=== PATIENT | male | born 1955 | race Caucasian/White ===

== ENCOUNTER → 2017-04-09 06:55 | Outpatient (CLI) | payer OTHER, SELFPAY ==
--- NOTE | 2017-04-09 10:08 | NEURO_ITS ---
NCS and/or EMG Patient Report Ordering Doctor: Danny Connelly DATE OF SERVICE: 04/09/17 This is a right upper extremity nerve conduction study performed on this 61-year -old male with a history of numbness in his fingers worse at night. A wrist brace has been helpful. Symptoms have been present for approximately 2 years she is healthy otherwise. Right upper extremity sensory and motor nerve conduction study demonstrates prolongation of the median motor and sensory distal latencies with preservation of amplitudes and conduction velocities. The ulnar motor and sensory and radial sensory responses are normal. The median F-wave is prolonged, the ulnar F wave is normal. 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
== END ==
PROVIDERS: Family Provider Family Medicine; PCP Family Medicine; Visit Provider Family Medicine
DX: G56.01 Carpal tunnel syndrome, right upper limb (principal)
CPT/HCPCS: 95909

== ENCOUNTER → 2019-06-02 10:00 | Outpatient (CLI) | payer OTHER, SELFPAY ==
[2014-10-15 14:43] VITALS: BMI 27.8
== END ==
PROVIDERS: PCP Family Medicine; Referring Provider Otolaryngology; Visit Provider Otolaryngology
DX: J32.9 Chronic sinusitis, unspecified (principal)
CPT/HCPCS: 87070; 87205

== ENCOUNTER → 2019-06-05 08:25 | Outpatient (CLI) | payer OTHER, SELFPAY ==
--- NOTE | 2019-06-05 08:39 | CT_ITS ---
STUDY: CT MAXILLOFACIAL SINUSES REASON FOR EXAM: Male, 63 years old. PT STATED CHRONIC SINUSITIS X 4 MONTHS, NIA COLT RADIATION DOSAGE (If Supplied By Facility): CTDIvol = ( 33.06 ) mGy, DLP = ( 899.96 ) mGycm TECHNIQUE: The patient was scanned in a multi detector CT scanner. High resolution axial imaging was performed without the administration of intravenous contrast material. Sagittal and coronal images were reconstructed. Individualized dose optimization techniques were used for this CT. COMPARISON: None. FINDINGS: FRONTAL SINUSES: There is minimal mucosal thickening of the right frontal sinus. The left frontal sinus is clear. ETHMOIDAL SINUSES: There is mucosal thickening of the right anterior ethmoidal cells. The left ethmoidal cells are clear. MAXILLARY SINUSES: There is complete opacification of the right maxillary sinus with obstruction of the outflow tract. SPHENOIDAL SINUSES: Normal aeration, without mucosal inflammatory disease. There is obstruction of the right maxillary infundibuli. Normal bilateral middle turbinates. Normal bilateral inferior turbinates. There is deviation of the nasal septum to the left There is patency of the bilateral nasal airways. The visualized osseous structures are normal. The visualized bilateral orbital contents are normal. CT/Sinus/Facial Bone IMPRESSION: Right paranasal sinus disease. Electronically Signed: Deidra Quevedo MD at 9:46 EDT Tel , Service support ,
== END ==
PROVIDERS: PCP Family Medicine; Referring Provider Otolaryngology; Visit Provider Otolaryngology
DX: J32.9 Chronic sinusitis, unspecified (principal)
CPT/HCPCS: 70486

== ENCOUNTER 2019-11-15 06:55 | Emergency (ER) | payer OTHER, SELFPAY ==
[2019-11-15 06:55] VITALS: BP 184/119; PULSE 83; RESP 16; TEMP 36.5; O2SAT 95; BMI 28.8
--- NOTE | 2019-11-15 07:15 | ED.VISSUMM ---
- ER Visit Summary Date of Service: 11/15/19 Chief Complaint: Abdominal pain History of Present Illness: The patient is a 64 M who presents with abdominal pain that began this morning. Patient states the pain woke him up approximately 3-1/2 hours prior to arrival. Patient states the pain is over the left side of his abdomen under his left ribs. Patient admits to some nausea and vomiting. Patient denies any hematemesis or coffee-ground emesis. Patient denies any diarrhea, melena, or hematochezia. Patient describes his pain is aching. Patient denies any radiation of the pain. Patient denies any dysuria or hematuria. Patient states nothing makes his pain better or worse. Physical Examination: Vital signs are stable except for an elevated blood pressure of 184/119. Patient is afebrile. Patient is in no acute distress. Oral mucosa is pink and moist. Neck is supple. Trachea is midline. There is no JVD. Heart was regular rate and rhythm. Lungs are clear and equal bilaterally. Abdomen is soft. Bowel sounds are hypoactive. There is some left upper quadrant tenderness. There is some mild tenderness over the left costovertebral angle. There is no rebound or guarding noted. Extremities are intact. There is no calf tenderness or edema. Cranial nerves II through XII are intact. There are no focal motor or sensory deficits. Test Results: CBC was within normal limits. Comprehensive metabolic profile showed a slightly elevated creatinine of 1.46 and a BUN of 22. Urinalysis does not show any evidence of urinary tract infection. CT scan of the abdomen and pelvis with IV contrast was obtained. There is a 4 mm left distal ureteral calculus with obstruction. There are also 3 nonobstructing calculi in the left kidney. These were interpreted by the radiologist and reviewed by myself. Emergency Department Course and Treatment: Patient was given IV fluids, morphine, and Zofran here. Patient had minimal relief of his pain with this. Patient was given a dose of Dilaudid here. Patient was feeling better on reevaluation. Patient was advised of his findings. Patient was given a prescription for Percocet. Patient was given a referral for urology. Patient was instructed to follow-up with his primary care physician in 5 to 7 days. Patient was also instructed to follow-up with urology. Patient understood and was agreeable with the plan. All questions were answered. Disposition: Discharge home Impression: 1. Left ureteral calculus This note was generated with [employer] dictation software. It may contain incorrect words, spelling, and punctuation that were not noted in review of the chart prior to signing ED Disposition - Plan for ED Patient: Disposition: Home or Assisted Living Diagnosis: Calculus of distal left ureter Instructions: ED Renal Stone w Colic Prescriptions: Oxycodone HCl/Acetaminophen [Percocet 5/325] 1 tab PO Q6H PRN PRN 3 Days #12 tab PRN Reason: Pain Prescription Printed Referrals: Danny Connelly MD [Primary Care Provider] - 5-7 Days Ozzie Gibbs MD [STAFF PHYSICIAN] - 3-5 Days
[2019-11-15 07:24] LABS: Absolute Lymphocyte Count 0.97 X10^3/uL (0.83-4.51); Absolute Neutrophil Count 6.1 X10^3/uL (2.0-7.7); Basophil# 0.05 X10^3/uL; Basophil% 0.6 % (0-1); Eosinophil# 0.15 X10^3/uL; Eosinophils% 1.9 % (0-5); Hematocrit 44.7 % (40-54); Hemoglobin 14.7 g/dL (13.0-16.5); Lymphocyte # 0.97 X10^3/ul (4.0); Lymphocyte % 12.2 % (19-41); Mean Corp Hgb Conc 32.9 g/dL (32-36); Mean Corpuscular Hgb 29.4 pg (27.0-32.0); Mean Corpuscular Volume 89.4 fL (80-94); Mean Platelet Vol. 9.7 fl (6.2-12.0); Monocyte# 0.62 X10^3/uL; Monocyte% 7.8 % (0-10); NRBC Flagged by Analyzer 0 % (0-5); Platelet Count 287 K/mm3 (150-450); RBC Distribution Width CV 13.1 % (11.6-14.6); RBC Distribution Width SD 42.8 fl (35.1-43.9); White Blood Count 7.9 K/mm3 (4.4-11.0)
[2019-11-15] MEDS: Ondansetron 4 MG/2 ML Vial IV (07:27)
[2019-11-15] MEDS: Morphine 4 MG/ML Syringe IV (07:28)
[2019-11-15] MEDS: 0.9% Normal Saline 1,000 ML 1000 ML IV ×2 (07:29→08:48)
--- NOTE | 2019-11-15 07:29 | CT_ITS ---
STUDY: CT ABDOMEN AND PELVIS WITHOUT CONTRAST REASON FOR EXAM: Male, 64 years old. Left sided abdomen pain today, vomiting. RADIATION DOSAGE (If Supplied By Facility): CTDIvol = ( 19.74 ) mGy, DLP = ( 1290.36 ) mGycm TECHNIQUE: Transaxial images were obtained from the dome of the diaphragm to the symphysis pubis without oral contrast, and without intravenous contrast. Sagittal and coronal images were reconstructed. Individualized dose optimization techniques were used for this CT. COMPARISON: None. FINDINGS: Small cyst in the left lung base. The visualized portions of the heart are within normal limits. Small nonenhancing hypodense cyst in the right hepatic lobe (series 2, image 22). Normal gallbladder and extrahepatic biliary system. Normal spleen. Normal pancreas. Normal bilateral adrenal glands. Right kidney: 2 nonenhancing hypodense cysts. The dominant cyst measures 4.6 x 4.1 cm. No stones or hydronephrosis. Left kidney: 3 nonobstructing calculi. They are 2 to 3 mm in size. Moderate left hydronephrosis secondary to 4 mm partially obstructing calculus in the left distal ureter. Mild perirenal space edema. Normal visualized stomach. Normal small intestine. Normal colon. The appendix is visualized and appears normal. Minimal calcified plaques in the infrarenal abdominal aorta and moderate calcifications in the iliac arteries. Normal inferior vena cava. Normal retroperitoneum. Normal urinary bladder. Prominent central lobe is at least BPH. Normal abdominal wall. Mild anterior wedging of the upper T12 vertebral body is presumably from remote injury. Pronounced L5-S1 disc space height narrowing with grade 1 anterolisthesis of L5 on S1. Bilateral L5 pars defects and severe stenosis of the bilateral intervertebral neural foramina. CT/Abdomen/Pelvis W IV Cont ONLY IMPRESSION: 1. Moderate left hydronephrosis secondary to 4 mm partially obstructing calculus in the left distal ureter. 2. Approximately 3 nonobstructing calculi in the left kidney ranging from 2 to 3 mm in size. 3. 4.6 x 4.1 cm nonenhancing right renal cyst and a much smaller round cyst in the right upper renal pole. No stones in the right kidney. 4. Prominent central lobe of the prostate gland is at least BPH. 5. Bilateral L5 pars defects with grade 1 anterolisthesis of L5 on S1, pronounced L5-S1 disc space height narrowing and severe stenosis of the bilateral intervertebral neural foramina. Electronically Signed: Yuri Giles MD at 8:27 EDT , Service support ,
[2019-11-15 07:41] LABS: ALB/GLOB Ratio 1.1 RATIO (0.9-2.4); AST(SGOT) 17 U/L (15-37); Alanine Aminotransfer ALT/SGPT 25 U/L (16-61); Albumin, Serum 3.9 g/dL (3.2-5.0); Alkaline Phosphatase 79 U/L (45-117); Anion Gap 4 (5-15); BUN 22 mg/dL (7-18); BUN/Creat Ratio 15.1 RATIO (10-20); Calcium,Total 8.9 mg/dL (8.5-10.1); Chloride 110 mmol/L (98-107); Creatinine, Serum 1.46 mg/dL (0.70-1.30); EST Glomerular Filtration Rate 51 mL/min (>60); Est Glom Filt Rate - Afr Amer 62 mL/min (>60); Estimated Creatinine Clearance 62.72 ml/min; Globulin 3.7 g/dL (2.2-4.2); Glucose 110 mg/dL (74-106); Lipase 149 U/L (73-393); Potassium 4.2 mmol/L (3.5-5.1); Protein, Total 7.6 g/dL (6.4-8.2); Sodium Level 139 mmol/L (136-145)
[2019-11-15] MEDS: HYDROmorphone 1 MG/ML Syringe IV (07:55)
[2019-11-15 08:31] LABS: Bacteria 0 SEEN /hpf (None Seen); Mucous, Urine 0 SEEN /hpf (<or=2+); Squamous Epithelial Cells - UA 0 SEEN /hpf (0-5); White Blood Cells 0 SEEN /hpf (0-5)
[2019-11-15 08:33] LABS: Color, Urine Yellow (Yellow); Glucose, Dipstick Normal (Normal); Ketone-Dipstick Negative (Negative); Leukocyte Esterase-Dipstick Negative /ul (Negative); Nitrite-Dipstick Negative (Negative); Occult Blood-Urine 150 /ul (Negative); Protein-Dipstick Negative (Negative); Specific Gravity, Urine 1.015 (1.002-1.030); Urine Bilirubin Dipstick Negative (Negative); Urine Clarity Clear (Clear); Urine Urobilinogen Normal (Normal)
[2019-11-15 08:40] LABS: Red Blood Cells-Urine 5-10 SEEN /hpf (0-5)
[2019-11-15 08:50] VITALS: BP 174/114; PULSE 81; RESP 18; O2SAT 98
[2019-11-15 10:00] VITALS: BP 176/100; PULSE 85; RESP 18; O2SAT 99
== END 2019-11-15 10:43 | disposition home or self-care (01) ==
PROVIDERS: Emergency Provider Emergency Medicine; PCP Family Medicine
DX: N20.1 Calculus of ureter (principal); I25.10 Atherosclerotic heart disease of native coronary artery without angina pectoris; I10 Essential (primary) hypertension; E03.9 Hypothyroidism, unspecified; E78.00 Pure hypercholesterolemia, unspecified; Z79.899 Other long term (current) drug therapy
CPT/HCPCS: 74177; 80053; 81001; 83690; 85025; 96361; 96374; 96375; 99285; J7030; Q9967; A4216; J2405

== ENCOUNTER 2019-11-15 22:49 | Observation (INO) | payer OTHER, SELFPAY ==
[2019-11-15 06:55] VITALS: BMI 28.8
[2019-11-15 22:49] VITALS: BP 200/117; PULSE 87; RESP 26; TEMP 36.2; O2SAT 98; BMI 27.8
--- NOTE | 2019-11-15 23:07 | ED.DCSUM_ITS ---
History of Present Illness Chief Complaint: Flank Pain Informant: Patient Onset: Today Context: Sudden Onset Timing: Continuous Current Severity: Moderate Maximum Severity: Severe Narrative: The patient presents with left flank pain and left lower quadrant pain. The patient was actually seen here early this morning. At that time, he was found to have a 4 mm distal obstructing stone with mild hydronephrosis. His pain was very well controlled until about 8 PM tonight. It then came back. He states that he tried a Percocet with no improvement. He is been nauseated with increasing pain. He denies fevers or chills. He denies any dysuria. 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 Patient does have history of coronary vascular disease with prior bypass. He denies any history of prior kidney stones. Prior similar symptoms: Yes Recent Illness/Hospitalization: No Past Medical History - Allergies and Home Meds Allergies/Adverse Reactions: Allergies No Known Allergies Allergy (Verified 11/15/19 07:04) Prior records reviewed: Yes Past Medical History: - - Hypertension hyperlipidemia Surgical History: coronary bypass surgery Smoking Status: Never smoker Review of Systems General: Denies: Chills, Fever, Sweats Eyes: Denies: Visual changes - bilaterally, Diplopia ENT: Denies: Rhinorrhea, Sore throat Cardiovascular: Denies: Chest pain, Palpitations Respiratory: Denies: Dyspnea, Cough, Dyspnea on exertion Gastrointestinal: Reports: Abdominal pain, Nausea. Denies: Vomiting, Diarrhea, Melena, Hematochezia Genitourinary: Denies: Dysuria, Hematuria, Frequency Musculoskeletal: Denies: Back pain, Extremity Pain Skin: Denies: Rash, Wounds Neurological: Denies: Headache, Weakness, Numbness Physical Exam Vital Signs/Narrative: Vital Signs Temp Pulse Resp BP Pulse Ox 11/15/19 22:49 97.1 F L 87 26 H 200/117 H 98 Inital Vital Signs reviewed: Yes General: Well nourished, Well developed, No Acute Distress Head: Normocephalic, Atraumatic Eyes: Perrl, EOMI ENT: Moist mucous membranes, No rhinorrhea Neck: Supple, Nontender Cardiovascular: Regular rate, Regular rhythm, No murmurs Respiratory: No distress, CTA bilaterally, Chest nontender Abdomen: Soft, Nontender, Nondistended, Normal bowel sounds Back: Nontender, Normal Inspection Extremities: Nontender, No edema Skin: Normal color, No rash Neurological: Alert, Oriented x3, Cranial nerves II-XII grossly intact, Normal Strength, Normal Sensation Psychological: Normal affect, Normal Mood Diagnostic/Tx/Re-eval Clinical Impression(s) from Imaging Studies KUB X-Ray 11/16/19 00:44 IMPRESSION: There are at least 2 punctate stones in the left side of the pelvis one which may represent a stone seen on the CT abdomen and pelvis November 15, 2019 8:02 AM. Right lower quadrant phleboliths. Moderate constipation. Electronically Signed: Delphine Hopkins MD at 1:38 EDT Tel , Service support , Abnormal Lab Results 11/15/19 11/15/19 11/16/19 23:30 23:30 00:13 WBC 12.8 H RBC 5.15 Hgb 15.2 Hct 45.8 MCV 88.9 MCH 29.5 MCHC 33.2 RDW Std Deviation 42.3 RDW Coeff of Olaf 13.1 Plt Count 295 MPV 9.9 Immature Gran % (Auto) 0.400 Neut % (Auto) 87.3 H Lymph % (Auto) 5.4 L [place] % (Auto) 6.4 Eos % (Auto) 0.3 Baso % (Auto) 0.2 Absolute Neuts (auto) 11.2 H Absolute Lymphs (auto) 0.69 L Nucleated RBC % 0 Sodium 138 Potassium 3.8 Chloride 107 Carbon Dioxide 24.0 Anion Gap 7 BUN 15 Creatinine 1.25 Estim Creat Clear Calc 73.26 Est GFR (MDRD) Af Amer 74 Est GFR (MDRD) Non-Af 61 BUN/Creatinine Ratio 12.0 Glucose 122 H Calcium 9.0 Urine Color Yellow Urine Clarity Clear Urine pH 7.0 Ur Specific [place] 1.010 Urine Protein 15 H Urine Glucose (UA) Normal Urine Ketones Negative Urine Occult Blood 50 H Urine Nitrite Negative Urine Bilirubin Negative Urine Urobilinogen Normal Ur Leukocyte Esterase Negative Urine RBC 0-5 SEEN Urine WBC 0 SEEN Ur Squamous Epith Cells 0 SEEN Urine Bacteria 0 SEEN Urine Mucus 0 SEEN - Medical Decision Making The patient presents with recurrent pain. He was diagnosed with a kidney stone earlier this morning. He states that he was doing very well until his pain came back. He is markedly uncomfortable. IV was established. Blood work was repeated. With Dilaudid and Toradol, he is feeling markedly improved. He was able to urinate, but there was no evidence of stone passage. There is no evidence of urinary tract infection. The patient is still mildly uncomfortable. Given his significant recurrence of pain, I do feel that the best plan of care will be for observation for pain control, hydration, and potential urology consultation if he does not pass the stone. Patient is agreeable with this plan plan of care Impression 1. 4 mm left UVJ stone with persistent pain ED Disposition - Plan for ED Patient:
[2019-11-15] MEDS: 0.9% Normal Saline 1,000 ML 250 ML IV (23:40)
[2019-11-15] MEDS: Ondansetron 4 MG/2 ML Vial IV (23:40)
[2019-11-15] MEDS: Ketorolac 30 MG/ML Syringe IV (23:40)
[2019-11-15] MEDS: HYDROmorphone 1 MG/ML Syringe IV (23:40)
[2019-11-15 23:55] LABS: Absolute Lymphocyte Count 0.69 X10^3/uL (0.83-4.51); Absolute Neutrophil Count 11.2 X10^3/uL (2.0-7.7); Basophil# 0.03 X10^3/uL; Basophil% 0.2 % (0-1); Eosinophil# 0.04 X10^3/uL; Eosinophils% 0.3 % (0-5); Hematocrit 45.8 % (40-54); Hemoglobin 15.2 g/dL (13.0-16.5); Lymphocyte # 0.69 X10^3/ul (4.0); Lymphocyte % 5.4 % (19-41); Mean Corp Hgb Conc 33.2 g/dL (32-36); Mean Corpuscular Hgb 29.5 pg (27.0-32.0); Mean Corpuscular Volume 88.9 fL (80-94); Mean Platelet Vol. 9.9 fl (6.2-12.0); Monocyte# 0.82 X10^3/uL; Monocyte% 6.4 % (0-10); NRBC Flagged by Analyzer 0 % (0-5); Neutrophil # 11.16 X10^3/uL (2.7-7.7); Neutrophil % 87.3 % (47-70); Platelet Count 295 K/mm3 (150-450); RBC Distribution Width CV 13.1 % (11.6-14.6); RBC Distribution Width SD 42.3 fl (35.1-43.9); Red Blood Count 5.15 M/mm3 (4.6-6.2); White Blood Count 12.8 K/mm3 (4.4-11.0)
[2019-11-15 23:56] LABS: Anion Gap 7 (5-15); BUN 15 mg/dL (7-18); Chloride 107 mmol/L (98-107); Creatinine, Serum 1.25 mg/dL (0.70-1.30); EST Glomerular Filtration Rate 61 mL/min (>60); Est Glom Filt Rate - Afr Amer 74 mL/min (>60); Estimated Creatinine Clearance 73.26 ml/min; Glucose 122 mg/dL (74-106); Potassium 3.8 mmol/L (3.5-5.1); Sodium Level 138 mmol/L (136-145)
[2019-11-16] VITALS (7 sets, daily range): BP systolic 145–174; BP diastolic 83–108; PULSE 72–87; RESP 16–18; TEMP 36.4–36.9; O2SAT 94–99; BMI 28.8
[2019-11-16 00:18] LABS: Bacteria 0 SEEN /hpf (None Seen); Mucous, Urine 0 SEEN /hpf (<or=2+); Squamous Epithelial Cells - UA 0 SEEN /hpf (0-5); White Blood Cells 0 SEEN /hpf (0-5)
[2019-11-16 00:19] LABS: Color, Urine Yellow (Yellow); Glucose, Dipstick Normal (Normal); Ketone-Dipstick Negative (Negative); Leukocyte Esterase-Dipstick Negative /ul (Negative); Nitrite-Dipstick Negative (Negative); Occult Blood-Urine 50 /ul (Negative); Protein-Dipstick 15 mg/dl (Negative); Urine Bilirubin Dipstick Negative (Negative); Urine Clarity Clear (Clear); Urine Urobilinogen Normal (Normal)
[2019-11-16 00:31] LABS: Red Blood Cells-Urine 0-5 SEEN /hpf (0-5)
--- NOTE | 2019-11-16 00:44 | RAD_ITS ---
STUDY: X-RAY - ABDOMEN/PELVIS REASON FOR EXAM: Male, 64 years old. PT SEEN HERE THIS AM AND DX WITH KIDNEY STONE; RETURNS WITH UNCONTROLLED PAIN. LEFT SIDE PAIN. PAIN IS IN PELVIS NOW ANTERIOR TECHNIQUE: Two AP supine views of the abdomen and pelvis. COMPARISON: November 14 CT abdomen and pelvis at 8:02 AM FINDINGS: The lung bases are out of the [id number]. There is a gassy appearance of the colon there is moderate stool. The liver silhouette appears normal. The renal silhouettes are mostly obscured. There are phleboliths within the pelvis. There are punctate calcifications in the left side of the pelvis. There are diffuse degenerative changes of the visualized lumbar spine. RAD/Abdomen Single View IMPRESSION: There are at least 2 punctate stones in the left side of the pelvis one which may represent a stone seen on the CT abdomen and pelvis November 15, 2019 8:02 AM. Right lower quadrant phleboliths. Moderate constipation. Electronically Signed: Delphine Hopkins MD at 1:38 EDT Tel , Service support ,
--- NOTE | 2019-11-16 02:30 | HP.PCM_ITS ---
History of Present Illness Date of Admission: 11/16/19 Chief Complaint: Flank pain The patient is a 64 year old M with a PMH as below who presents with left-sided flank pain that was found to have a kidney stone yesterday morning. He was started on Percocets in the ER and had resolution of this pain and was therefore discharged home. At around 8 PM this evening he had a recurrence of his pain and it was difficult to control. Repeat x-rays did not show a stone however he is still having increasing pain and nausea. He was given a dose of Flomax in the ER and started on IV fluids. He is nervous about going home as he is afraid about his pain not being controlled and therefore would like to be admitted. Past Medical History Allergies No Known Allergies Allergy (Verified 11/15/19 07:04) Home Medications: Ambulatory Orders Medication Instructions Recorded Atenolol [Tenormin (beta carmelo)] 25 mg PO BID 10/15/14 Isosorbide Mononitrate [Monoket] 20 mg PO DAILY 10/15/14 Levothyroxine [Synthroid] 75 mcg PO DAILY 10/15/14 Sertraline HCl [Zoloft] 25 mg PO DAILY 10/15/14 Simvastatin [Zocor] 20 mg PO QHS 10/15/14 Oxycodone HCl/Acetaminophen 1 tab PO Q6H PRN PRN 3 Days #12 tab 11/15/19 [Percocet 5/325] Surgical History: coronary bypass surgery Smoking Status: Never smoker Alcohol: None Drugs: None - *Family History Maternal History Items: Heart Disease Paternal History Items: Unknown Review of Systems Constitutional: Denies: Chills, Fever, Weight Change HEENT: Denies: Head Aches, Sinus Congestion, Sinus Drainage Cardiovascular: Denies: Chest Pain, Palpitations Respiratory: Denies: Cough, Shortness of breath at rest, Sputum production Gastrointestinal: Reports: - - Flank pain left. Denies: Abdominal Pain, Nausea, Vomiting Genitourinary: Denies: Dysuria Musculoskeletal: Denies: Joint Pain, Joint Tenderness Skin: Denies: Rash, Wounds Neurological: Denies: Numbness, Tingling, Focal weakness Psychiatric: Denies: Anxiety, Depression Hematologic/ Lymphatic: Denies: Easy Bruising, Easy Bleeding VTE Information - Inpt Only VTE Present on Admission: No - Physical Exam Vitals/I&O's: Vital Signs Temp Pulse Resp BP Pulse Ox 97.1 F L 86 16 168/104 H 99 11/15/19 22:49 11/16/19 01:25 11/16/19 01:25 11/16/19 01:25 11/16/19 01:25 Oxygen Delivery Method Room Air Weight: 235 lb Body Mass Index (BMI) 27.8 General: Alert, Oriented x3, Cooperative, No apparent distress HEENT: Atraumatic, PERRLA, EOMI, Normocephalic Oral: Moist Mucosa Neck: Supple, No JVD Lungs: Clear to auscultation, Normal air movement, No rhonchi, No wheeze, No rales Cardiovascular: Regular rate, Regular Rhythm, Normal S1, Normal S2, No murmurs Abdomen: Soft, Non Tender, Non-Distended, No Hepato-splenomegaly Extremities: No edema, Capillary Refill Less than 3 Seconds Skin: No rashes, No breakdown Neurological: Neuro grossly intact, Sensory exam intact to light touch and pain Psych/Mental Status: Normal Affect, Appropriate Laboratory Results 11/15/19 23:30: WBC 12.8 H, RBC 5.15, Hgb 15.2, Hct 45.8, MCV 88.9, MCH 29.5, MCHC 33.2, RDW Std Deviation 42.3, RDW Coeff of Olaf 13.1, Plt Count 295, MPV 9.9, Immature Gran % (Auto) 0.400, Neut % (Auto) 87.3 H, Lymph % (Auto) 5.4 L, [place] % (Auto) 6.4, Eos % (Auto) 0.3, Baso % (Auto) 0.2, Absolute Neuts (auto) 11.2 H, Absolute Lymphs (auto) 0.69 L, Nucleated RBC % 0 11/15/19 23:30: Sodium 138, Potassium 3.8, Chloride 107, Carbon Dioxide 24.0, Anion Gap 7, BUN 15, Creatinine 1.25, Estim Creat Clear Calc 73.26, Est GFR (MDRD) Af Amer 74, Est GFR (MDRD) Non-Af 61, BUN/Creatinine Ratio 12.0, Glucose 122 H, Calcium 9.0 11/16/19 00:13: Urine Color Yellow, Urine Clarity Clear, Urine pH 7.0, Ur Specific [place] 1.010, Urine Protein 15 H, Urine Glucose (UA) Normal, Urine Ketones Negative, Urine Occult Blood 50 H, Urine Nitrite Negative, Urine Bilirubin Negative, Urine Urobilinogen Normal, Ur Leukocyte Esterase Negative, Urine RBC 0-5 SEEN, Urine WBC 0 SEEN, Ur Squamous Epith Cells 0 SEEN, Urine Bacteria 0 SEEN, Urine Mucus 0 SEEN Current Medications Sodium Chloride () 1,000 mls @ 250 mls/hr IV .Q4H JAVAD Last Admin: 11/15/19 23:40 Dose: 250 mls/hr Documented by: Assessment/Plan 1. 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 HTN/HLD -Blood pressures are stable -Continue with atenolol, isosorbide mononitrate -Continue with simvastatin 3. Hypothyroidism -Stable -Continue with Synthroid 4. Depression/anxiety -Stable -Continue with Zoloft DVT: Ambulation OBSV E&M: 45531 Initial observation care L3
[2019-11-16] MEDS: Tamsulosin HCl 0.4 MG Capsule PO ×2 (02:43→17:16)
[2019-11-16] MEDS: 0.9% Normal Saline 1,000 ML 100 ML IV ×3 (03:30→22:04)
[2019-11-16] MEDS: 0.9% Saline Lock 10 ML Syringe IV (03:30)
[2019-11-16] MEDS: Levothyroxine 75 MCG Tablet PO (05:40)
[2019-11-16] MEDS: Sertraline 50 MG Tablet 25 MG PO (08:20)
[2019-11-16] MEDS: Isosorbide Mononitrate 20 MG Tablet PO (08:21)
[2019-11-16] MEDS: Atenolol 25 MG Tablet PO ×2 (08:21→22:03)
[2019-11-16] MEDS: Morphine 2 MG/ML Syringe IV ×2 (10:25→13:28)
[2019-11-16] MEDS: Ketorolac 30 MG/ML Syringe IV (11:13)
[2019-11-16] MEDS: oxyCODONE 5 MG Tablet PO (11:13)
--- NOTE | 2019-11-16 11:40 | PCM.PN.HOSP ---
Subjective: Pt states that he is still having waves of horrible pain that does respond to the pain medication but is the same that he had on admission. Otherwise is ok. Is pushing PO fluids and urinating without difficulty or dysuria. Vitals/I&O's: Vital Signs Temp Pulse Resp BP Pulse Ox 97.6 F L 73 16 145/83 H 95 11/16/19 11:20 11/16/19 11:20 11/16/19 11:20 11/16/19 11:20 11/16/19 11:20 Oxygen Delivery Method Room Air Weight: 110 kg Body Mass Index (BMI) 28.8 Intake and Output for Last 24 Hours 11/14/19 11/15/19 11/16/19 23:59 23:59 23:59 Intake Total 3033.33 / 3033.33 Output Total 2400 / 2400 Balance 633.33 / 633.33 General: Alert, Oriented x3, Cooperative, No apparent distress, Well developed, Well nourished Oral: Moist Mucosa Lungs: Clear to auscultation, Normal air movement, No rhonchi, No wheeze Cardiovascular: Regular rate, Regular Rhythm, Normal S1, Normal S2, No murmurs, No Ectopic Activity, No rub noted, No Gallop Abdomen: Bowel Sounds Present, Soft, Non-Distended Extremities: No clubbing, No cyanosis, No edema, Capillary Refill Less than 3 Seconds Psych/Mental Status: Normal Affect, Appropriate, Alert and oriented to time, place, person, mood and affect Laboratory Results 11/15/19 23:30: WBC 12.8 H, RBC 5.15, Hgb 15.2, Hct 45.8, MCV 88.9, MCH 29.5, MCHC 33.2, RDW Std Deviation 42.3, RDW Coeff of Olaf 13.1, Plt Count 295, MPV 9.9, Immature Gran % (Auto) 0.400, Neut % (Auto) 87.3 H, Lymph % (Auto) 5.4 L, [place] % (Auto) 6.4, Eos % (Auto) 0.3, Baso % (Auto) 0.2, Absolute Neuts (auto) 11.2 H, Absolute Lymphs (auto) 0.69 L, Nucleated RBC % 0 11/15/19 23:30: Sodium 138, Potassium 3.8, Chloride 107, Carbon Dioxide 24.0, Anion Gap 7, BUN 15, Creatinine 1.25, Estim Creat Clear Calc 73.26, Est GFR (MDRD) Af Amer 74, Est GFR (MDRD) Non-Af 61, BUN/Creatinine Ratio 12.0, Glucose 122 H, Calcium 9.0 11/16/19 00:13: Urine Color Yellow, Urine Clarity Clear, Urine pH 7.0, Ur Specific [place] 1.010, Urine Protein 15 H, Urine Glucose (UA) Normal, Urine Ketones Negative, Urine Occult Blood 50 H, Urine Nitrite Negative, Urine Bilirubin Negative, Urine Urobilinogen Normal, Ur Leukocyte Esterase Negative, Urine RBC 0-5 SEEN, Urine WBC 0 SEEN, Ur Squamous Epith Cells 0 SEEN, Urine Bacteria 0 SEEN, Urine Mucus 0 SEEN Current Medications Atenolol (Tenormin (Beta Kristofer)) 25 mg PO BID [facility] Last Admin: 11/16/19 08:21 Dose: 25 mg Documented by: Atorvastatin Calcium (Lipitor) 10 mg PO QHS [facility] Sodium Chloride () 1,000 mls @ 100 mls/hr IV .Q10H [facility] Last Admin: 11/16/19 03:30 Dose: 100 mls/hr Documented by: Isosorbide Mononitrate (Monoket) 20 mg PO DAILY [facility] Last Admin: 11/16/19 08:21 Dose: 20 mg Documented by: Ketorolac Tromethamine (Toradol (Bkc)) 30 mg IV Q6H PRN PRN PRN Reason: Pain Score 1-10/10 Stop: 11/21/19 04:15 Last Admin: 11/16/19 11:13 Dose: 30 mg Documented by: Levothyroxine Sodium (Synthroid) 75 mcg PO DAILY@0600 [facility] Last Admin: 11/16/19 05:40 Dose: 75 mcg Documented by: Morphine Sulfate () 2 mg IV Q3H PRN PRN PRN Reason: Pain Score 6-10/10 Last Admin: 11/16/19 10:25 Dose: 2 mg Documented by: Oxycodone HCl (Oxyir) 5 mg PO Q6H PRN PRN PRN Reason: Pain Score 4-5/10 Last Admin: 11/16/19 11:13 Dose: 5 mg Documented by: Sertraline HCl (Zoloft) 25 mg PO DAILY [facility] Last Admin: 11/16/19 08:20 Dose: 25 mg Documented by: Sodium Chloride () 10 - 40 ml IV UD PRN PRN Reason: SALINE FLUSH Last Admin: 11/16/19 03:30 Dose: 10 ml Documented by: Tamsulosin HCl (Flomax) 0.4 mg PO DAILY@1730 JAVAD STROKE Vital Signs/Narrative: Vital Signs Temp Pulse Resp BP Pulse Ox 11/16/19 11:20 97.6 F L 73 16 145/83 H 95 11/16/19 09:04 97.8 F 82 16 174/100 H 96 Medical Necessity - Tobacco Use Smoking Status: Never smoker Assessment/Plan Acute L Kidney Stone -Pt is still having sig pain in waves on the L -CT from 11/14 showed 3 nonobstructing stones in the L kidney, Mod l hydro 2/2 4 mm distal L ureteral stone -continue IVF -continue Flomax -continue pain medication -Consult Urology since still having pain Hydronephrosis 2/2 Kidney stone -renal function is preserved Microscopic Hematuria -2/2 stones Leukocytosis -suspect reactive -repeat in am -UA with no s/o infection BPH -flomax HTN/HPL -continue atenolol, isosorbide mononitrate -continue statin Hypothyroidism -cont synthroid Anxiety/Depression -continue with Zoloft DVT -early ambulation Code Status -Full Inpatient E&M: 71125 Subs Hosp L2
--- NOTE | 2019-11-16 12:46 | PCM.CONS.U ---
Reason for Consult Date of Consultation: 11/16/19 Reason for Consultation: Left ureter calculi History of Present Illness: The patient is a 64 year old male presented with a small stone distal left ureter was sent home but then rebounds back to the hospital in severe pain he was admitted for pain control he has a small stone in the distal left ureter Past Medical History Allergies No Known Allergies Allergy (Verified 11/15/19 07:04) Home Medications: Ambulatory Orders Medication Instructions Recorded Atenolol [Tenormin (beta carmelo)] 25 mg PO BID 10/15/14 Isosorbide Mononitrate [Monoket] 20 mg PO DAILY 10/15/14 Levothyroxine [Synthroid] 75 mcg PO DAILY 10/15/14 Sertraline HCl [Zoloft] 25 mg PO DAILY 10/15/14 Simvastatin [Zocor] 20 mg PO QHS 10/15/14 Oxycodone HCl/Acetaminophen 1 tab PO Q6H PRN PRN 3 Days #12 tab 11/15/19 [Percocet 5/325] Surgical History: coronary bypass surgery Smoking Status: Never smoker Alcohol: None Drugs: None - *Family History Maternal History Items: Heart Disease Paternal History Items: Unknown Review of Systems Constitutional: Denies: Chills, Fever, Weight Change HEENT: Denies: Head Aches, Sinus Congestion, Sinus Drainage Cardiovascular: Denies: Chest Pain, Palpitations Respiratory: Denies: Cough, Shortness of breath at rest, Sputum production Gastrointestinal: Denies: Abdominal Pain, Nausea, Vomiting Genitourinary: Denies: Dysuria Musculoskeletal: Denies: Joint Pain, Joint Tenderness Skin: Denies: Rash, Wounds Neurological: Denies: Numbness, Tingling, Focal weakness Psychiatric: Denies: Anxiety, Depression, Homicidal Ideations, Suicidal Ideations Hematologic/ Lymphatic: Denies: Easy Bruising, Easy Bleeding Physical Exam - Physical Exam Vital Signs Temp 97.6 F L 11/16/19 11:20 Pulse 73 11/16/19 11:20 Resp 16 11/16/19 11:20 BP 145/83 H 11/16/19 11:20 Pulse Ox 95 11/16/19 11:20 Intake & Output 11/14/19 11/15/19 11/16/19 23:59 23:59 23:59 Intake Total 3033.33 / 3033.33 Output Total 2400 / 2400 Balance 633.33 / 633.33 Weight: 106.594 kg 110 kg Intake: Oral 1100 / 1100 Intake, IV Amount 33 / 33 0.9% Normal Saline 1,000 ML @ 1932.33 / 1932.33 250 mls/hr IV .Q4H JAVAD Rx#: [id number] Output: Urine 2400 / 2400 General: Alert, Oriented x3 HEENT: Atraumatic Oral: Moist Mucosa Neck: Supple Abdomen: Soft Laboratory Tests Past 24 Hrs 11/15/19 11/15/19 11/16/19 23:30 23:30 00:13 WBC 12.8 H RBC 5.15 Hgb 15.2 Hct 45.8 MCV 88.9 MCH 29.5 MCHC 33.2 RDW Std Deviation 42.3 RDW Coeff of Olaf 13.1 Plt Count 295 MPV 9.9 Immature Gran % (Auto) 0.400 Neut % (Auto) 87.3 H Lymph % (Auto) 5.4 L Louisa % (Auto) 6.4 Eos % (Auto) 0.3 Baso % (Auto) 0.2 Absolute Neuts (auto) 11.2 H Absolute Lymphs (auto) 0.69 L Nucleated RBC % 0 Sodium 138 Potassium 3.8 Chloride 107 Carbon Dioxide 24.0 Anion Gap 7 BUN 15 Creatinine 1.25 Estim Creat Clear Calc 73.26 Est GFR (MDRD) Af Amer 74 Est GFR (MDRD) Non-Af 61 BUN/Creatinine Ratio 12.0 Glucose 122 H Calcium 9.0 Urine Color Yellow Urine Clarity Clear Urine pH 7.0 Ur Specific [place] 1.010 Urine Protein 15 H Urine Glucose (UA) Normal Urine Ketones Negative Urine Occult Blood 50 H Urine Nitrite Negative Urine Bilirubin Negative Urine Urobilinogen Normal Ur Leukocyte Esterase Negative Urine RBC 0-5 SEEN Urine WBC 0 SEEN Ur Squamous Epith Cells 0 SEEN Urine Bacteria 0 SEEN Urine Mucus 0 SEEN Assessment/Plan Continue with pain control push fluids strain all urine. If patient is not able to pass a stone then would offer surgical intervention on Saturday with ureteroscopy and basket extraction possible stent.
[2019-11-16] MEDS: Senna/Docusate Sodium 1 Tablet 2 TABLET PO (22:03)
[2019-11-16] MEDS: Atorvastatin Calcium 10 MG Tablet PO (22:03)
[2019-11-17 01:04] VITALS: BP 177/99; PULSE 81; RESP 20; TEMP 36.7; O2SAT 95
[2019-11-17] MEDS: Ketorolac 30 MG/ML Syringe IV (01:18)
[2019-11-17] MEDS: oxyCODONE 5 MG Tablet PO (01:18)
[2019-11-17 05:03] VITALS: BP 169/101; PULSE 86; RESP 18; TEMP 36.4; O2SAT 98
[2019-11-17] MEDS: Levothyroxine 75 MCG Tablet PO (05:08)
[2019-11-17 07:28] LABS: Absolute Lymphocyte Count 1.05 X10^3/uL (0.83-4.51); Absolute Neutrophil Count 6.3 X10^3/uL (2.0-7.7); Basophil# 0.03 X10^3/uL; Basophil% 0.4 % (0-1); Eosinophil# 0.08 X10^3/uL; Hematocrit 41.9 % (40-54); Hemoglobin 13.5 g/dL (13.0-16.5); Lymphocyte # 1.05 X10^3/ul (4.0); Lymphocyte % 12.7 % (19-41); Mean Corp Hgb Conc 32.2 g/dL (32-36); Mean Corpuscular Hgb 29.4 pg (27.0-32.0); Mean Corpuscular Volume 91.3 fL (80-94); Mean Platelet Vol. 9.9 fl (6.2-12.0); Monocyte# 0.79 X10^3/uL; Monocyte% 9.6 % (0-10); NRBC Flagged by Analyzer 0 % (0-5); Neutrophil # 6.28 X10^3/uL (2.7-7.7); Neutrophil % 75.8 % (47-70); Platelet Count 225 K/mm3 (150-450); RBC Distribution Width CV 13.1 % (11.6-14.6); RBC Distribution Width SD 43.4 fl (35.1-43.9); Red Blood Count 4.59 M/mm3 (4.6-6.2); White Blood Count 8.3 K/mm3 (4.4-11.0)
[2019-11-17 07:49] LABS: Anion Gap 2 (5-15); BUN 8 mg/dL (7-18); BUN/Creat Ratio 8.8 RATIO (10-20); Calcium,Total 8.2 mg/dL (8.5-10.1); Chloride 107 mmol/L (98-107); Creatinine, Serum 0.91 mg/dL (0.70-1.30); EST Glomerular Filtration Rate 89 mL/min (>60); Est Glom Filt Rate - Afr Amer 108 mL/min (>60); Estimated Creatinine Clearance 100.63 ml/min; Glucose 86 mg/dL (74-106); Potassium 3.8 mmol/L (3.5-5.1); Sodium Level 138 mmol/L (136-145)
[2019-11-17] MEDS: 0.9% Normal Saline 1,000 ML 100 ML IV (07:52)
[2019-11-17 07:54] VITALS: BP 150/90; PULSE 89; RESP 18; TEMP 36.8; O2SAT 95
[2019-11-17] MEDS: Isosorbide Mononitrate 20 MG Tablet PO (08:00)
[2019-11-17] MEDS: Sertraline 50 MG Tablet 25 MG PO (08:00)
[2019-11-17] MEDS: Atenolol 25 MG Tablet PO (08:00)
[2019-11-17] MEDS: Senna/Docusate Sodium 1 Tablet 2 TABLET PO (08:05)
--- NOTE | 2019-11-17 10:21 | NURSING ---
LATE ENTRY - 0915 - ROUNDED ON PT, PT STATES I THINK I PASSED THE STONE. PT HAD VOIDED IN URINAL. URINE STRAINED, SMALL STONE NOTED. STONE PLACED IN SPECIMEN CUP.
--- NOTE | 2019-11-17 10:23 | DCINST_ITS ---
You will use the following diet at home:: Cardiac Your food should be the consistency of: Regular Your liquids should be the consistency of: Regular/Thin Discharge Activity: Return to Normal Activity, No Restrictions, May Drive Return to work on:: 11/17/19 May resume sexual activity in: No Restrictions Allergies/Adverse Reactions: Allergies No Known Allergies Allergy (Verified 11/15/19 07:04) Medications to take at Discharge Atenolol [Tenormin (beta carmelo)] 25 mg PO BID 10/15/14 Isosorbide Mononitrate [Monoket] 20 mg PO DAILY 10/15/14 Levothyroxine [Synthroid] 75 mcg PO DAILY 10/15/14 Sertraline HCl [Zoloft] 25 mg PO DAILY 10/15/14 Simvastatin [Zocor] 20 mg PO QHS 10/15/14 Oxycodone HCl/Acetaminophen [Percocet 5-325] 1 tab PO Q6H PRN PRN 3 Days #12 tab 11/15/19 Tamsulosin HCl [Flomax] 0.4 mg PO DAILY@1730 #30 cap 11/17/19 The following prescriptions were given: Tamsulosin HCl [Flomax] 0.4 mg PO DAILY@1730 #30 cap Transmission Status: Pending to [facility] Primary Care Physician: Danny Connelly MD [Primary Care Provider] - Please follow up with your Primary Care Physician in: 1-2 weeks for hospital follow up for kidney stone Test Results: Test results from this visit will be discussed in further detail at your follow- up appointment, if applicable. Please Follow Up With: Ozzie Gibbs MD When: 4-6 weeks for kidney stones
--- NOTE | 2019-11-17 10:25 | PCM.DC.SUM ---
Discharge Date and Diagnosis Date of Admission: 11/16/19 Date of Discharge: 11/17/19 Hospital Course and Treatment Operations: None Procedures: None Summary of Care Provided: Mr. Church is a 64 year old M who presented to the ED on the AM of 11/15/2019 with left-sided flank pain and was found to have a kidney stone at that time He was started on Percocet in the ER and had resolution of this pain and was therefore discharged home. At around 8 PM on the evening of 11/16/2019 he had a recurrence of his pain and noted that it was difficult to control. Repeat x-rays did not show a stone however he was still having increased pain and nausea. He was given a dose of Flomax in the ER and started on IV fluids. He was nervous about going home as he was afraid about his pain not being controlled and therefore would like to be admitted. He was treated with aggressive IVF, pain medication and his urine was strained. On the am of 11/15 he was still having pain and urology was consulted. They agreed with the current mgt and and noted that if he was not able to pass the stone they would offer surgical intervention on Saturday. Early on the am of 11/16 he passed the stone and his pain had resolved. He states that this am he has had no pain and feels like he is back to baseline. He will be d/c home on Flomax (script sent) and was directed to f/u with Dr. Gibbs in 4-6 weeks and his PCP in 1-2 weeks. He was d/c in good condition. Subjective: Pt states that he passed a stone this am and he is feeling well. Ready to go home. - Physical Exam Vitals/I&O's: Vital Signs Temp Pulse Resp BP Pulse Ox 98.2 F 89 18 150/90 H 95 11/17/19 07:54 11/17/19 07:54 11/17/19 07:54 11/17/19 07:54 11/17/19 07:54 Oxygen Delivery Method Room Air Weight: 110 kg Body Mass Index (BMI) 28.8 Intake and Output for Last 24 Hours 11/15/19 11/16/19 11/17/19 23:59 23:59 23:59 Intake Total 5690.00 / 5690.00 2180 / 2180 Output Total 3550 / 3550 2199 / 220 Balance 2140.00 / 2140.00 - General: Alert, Oriented x3, Cooperative, No apparent distress, Well developed, Well nourished Lungs: Clear to auscultation, Normal air movement, No rhonchi, No wheeze, No rales Cardiovascular: Regular rate, Regular Rhythm, Normal S1, Normal S2, No murmurs, No Ectopic Activity, No rub noted, No Gallop Abdomen: Bowel Sounds Present, Soft, Non Tender, Non-Distended, No Hepato-splenomegaly Extremities: No clubbing, No cyanosis, No edema, Capillary Refill Less than 3 Seconds, No Calf Tenderness, Peripheral Pulses Normal Skin: No rashes, No breakdown Psych/Mental Status: Normal Affect, Appropriate, Alert and oriented to time, place, person, mood and affect Laboratory Results 11/17/19 06:37: WBC 8.3, RBC 4.59 L, Hgb 13.5, Hct 41.9, MCV 91.3, MCH 29.4, MCHC 32.2, RDW Std Deviation 43.4, RDW Coeff of Olaf 13.1, Plt Count 225, MPV 9.9, Immature Gran % (Auto) 0.500, Neut % (Auto) 75.8 H, Lymph % (Auto) 12.7 L, M[place]racken % (Auto) 9.6, Eos % (Auto) 1.0, Baso % (Auto) 0.4, Absolute Neuts (auto) 6.3, Absolute Lymphs (auto) 1.05, Nucleated RBC % 0 11/17/19 06:37: Sodium 138, Potassium 3.8, Chloride 107, Carbon Dioxide 29.0, Anion Gap 2 L, BUN 8, Creatinine 0.91, Estim Creat Clear Calc 100.63, Est GFR (MDRD) Af Amer 108, Est GFR (MDRD) Non-Af 89, BUN/Creatinine Ratio 8.8 L, Glucose 86, Calcium 8.2 L Current Medications Atenolol (Tenormin (Beta Kristofer)) 25 mg PO BID [facility] Last Admin: 11/17/19 08:00 Dose: 25 mg Documented by: Atorvastatin Calcium (Lipitor) 10 mg PO QHS [facility] Last Admin: 11/16/19 22:03 Dose: 10 mg Documented by: Sodium Chloride () 1,000 mls @ 100 mls/hr IV .Q10H [facility] Last Admin: 11/17/19 07:52 Dose: 100 mls/hr Documented by: Isosorbide Mononitrate (Monoket) 20 mg PO DAILY [facility] Last Admin: 11/17/19 08:00 Dose: 20 mg Documented by: Ketorolac Tromethamine (Toradol (Bkc)) 30 mg IV Q6H PRN PRN PRN Reason: Pain Score 1-10/10 Stop: 11/21/19 04:15 Last Admin: 11/17/19 01:18 Dose: 30 mg Documented by: Levothyroxine Sodium (Synthroid) 75 mcg PO DAILY@0600 [facility] Last Admin: 11/17/19 05:08 Dose: 75 mcg Documented by: Morphine Sulfate () 2 mg IV Q3H PRN PRN PRN Reason: Pain Score 6-10/10 Last Admin: 11/16/19 13:28 Dose: 2 mg Documented by: Oxycodone HCl (Oxyir) 5 mg PO Q6H PRN PRN PRN Reason: Pain Score 4-5/10 Last Admin: 11/17/19 01:18 Dose: 5 mg Documented by: Senna/Docusate Sodium (Senokot-S, Kasey-Colace) 2 tablet PO BID [facility] Last Admin: 11/17/19 08:05 Dose: 2 tablet Documented by: Sertraline HCl (Zoloft) 25 mg PO DAILY [facility] Last Admin: 11/17/19 08:00 Dose: 25 mg Documented by: Sodium Chloride () 10 - 40 ml IV UD PRN PRN Reason: SALINE FLUSH Last Admin: 11/16/19 03:30 Dose: 10 ml Documented by: Tamsulosin HCl (Flomax) 0.4 mg PO DAILY@1730 [facility] Last Admin: 11/16/19 17:16 Dose: 0.4 mg Documented by: Discharge Activity: Return to Normal Activity, No Restrictions, May Drive Return to work on:: 11/17/19 May resume sexual activity in: No Restrictions Home Medications: Medications to take at Discharge Atenolol [Tenormin (beta kristofer)] 25 mg PO BID 10/15/14 Isosorbide Mononitrate [Monoket] 20 mg PO DAILY 10/15/14 Levothyroxine [Synthroid] 75 mcg PO DAILY 10/15/14 Sertraline HCl [Zoloft] 25 mg PO DAILY 10/15/14 Simvastatin [Zocor] 20 mg PO QHS 10/15/14 Oxycodone HCl/Acetaminophen [Percocet 5-325] 1 tab PO Q6H PRN PRN 3 Days #12 tab 11/15/19 Tamsulosin HCl [Flomax] 0.4 mg PO DAILY@1730 #30 cap 11/17/19 Following Prescriptions Were Given to Patient: Tamsulosin HCl [Flomax] 0.4 mg PO DAILY@1730 #30 cap Transmission Status: Pending to [facility] Primary Care Physician: Danny Connelly MD [Primary Care Provider] - Please follow up with your Primary Care Physician in: 1-2 weeks for hospital follow up for kidney stone Please Follow Up With: Ozzie Gibbs MD When: 4-6 weeks for kidney stones Medical Necessity - Tobacco Use Smoking Status: Never smoker Meaningful Use Info Meaningful Use Diagnoses (Choose all that apply): None applicable Inpatient E&M: [id number] [facility] Hosp
== END 2019-11-17 11:19 | disposition home or self-care (01) ==
LOC: ED 11-16 02:30 → MS3 11-16 02:33
PROVIDERS: Admitting Provider Family Medicine; Emergency Provider Emergency Medicine; PCP Family Medicine; Visit Provider Internal Medicine
DX: N13.2 Hydronephrosis with renal and ureteral calculous obstruction (principal); Z23 Encounter for immunization; I10 Essential (primary) hypertension; E78.5 Hyperlipidemia, unspecified; E03.9 Hypothyroidism, unspecified; F41.9 Anxiety disorder, unspecified; F32.9 Major depressive disorder, single episode, unspecified; N40.0 Benign prostatic hyperplasia without lower urinary tract symptoms; D72.829 Elevated white blood cell count, unspecified; Z79.899 Other long term (current) drug therapy
CPT/HCPCS: 36415; 74018; 80048; 81001; 85025; 96361; 96374; 96375; 96376; 99218; 99285; J7030; 90686; A4216; G0378; J2405

== ENCOUNTER 2021-03-30 15:11 | Outpatient (CLI) | payer OTHER, SELFPAY | END 2021-03-30 23:59 | disposition home or self-care (01) | LOC: LABSPEC 15:14 | PROVIDERS: PCP Family Medicine; Visit Provider Otolaryngology | DX: J01.90 Acute sinusitis, unspecified (principal) | CPT/HCPCS: 87070; 87077; 87186; 87205 ==

== ENCOUNTER 2022-01-20 01:50 | Emergency (ER) | payer OTHER, SELFPAY ==
[2022-01-20 01:51] VITALS: BP 176/110; PULSE 84; RESP 18; TEMP 36.1; O2SAT 96; BMI 28.4
[2022-01-20 02:21] VITALS: O2SAT 99
--- NOTE | 2022-01-20 02:21 | CT_ITS ---
STUDY: CT ABDOMEN AND PELVIS WITHOUT CONTRAST REASON FOR EXAM: Male, 66 years old. Left flank pain. TECHNIQUE: Transaxial images were obtained from the dome of the diaphragm to the symphysis pubis without oral contrast, and without intravenous contrast. Sagittal and coronal images were reconstructed. Individualized dose optimization techniques were used for this CT. COMPARISON: 11/15/2019 CT abdomen pelvis. FINDINGS: Partially visualized lower chest: Lung bases unremarkable. Sternotomy wires, changes of previous CABG partially visible. Liver: No concerning lesions. Gallbladder and biliary tree: Small gallstones rests in the gallbladder which is mildly distended but with no adjacent inflammation. No biliary ductal dilation. Pancreas: No pancreatic lesions or inflammation. Spleen: Normal size, no splenic lesions. Adrenal glands: No concerning masses. Kidneys and ureters: 4 mm distal left ureteral stone, immediately proximal to the UVJ, with moderate more proximal hydronephrosis and hydroureter and adjacent stranding. Several residual left-sided stones, largest 13 mm anterior lower pole calyx. No right ureteral stones or right hydronephrosis. Several, approximately 6, punctate nonobstructing right renal stones. Simple cyst right kidney again demonstrated, largest 5.3 cm anterior midpole. Bowel: Normal appendix. No obstruction or inflammation of the bowel. Urinary bladder: No stones or wall thickening. Reproductive: Prostate mildly enlarged. Vascular: No abdominal aortic aneurysm. Moderate calcific atherosclerosis. Retroperitoneal and peritoneal spaces: No ascites or free air. No retroperitoneal lesions. Osseous: No acute osseous abnormality. Bilateral L5 spondylolysis with grade 1 anterolisthesis of L5 on S1. Prominent disc degeneration at this level. Mild S-shaped scoliosis lower thoracic and lumbar spine. Abdominal and pelvic wall: No concerning findings. Any findings described in the findings sections and not included in the impression are incidental and do not require imaging follow-up. CT/Abdomen/Pelvis without Cont IMPRESSION: 4 mm distal left ureteral stone with moderate obstruction. Residual bilateral renal stones. Other chronic findings include prostate enlargement, bilateral L5 spondylolysis, and atherosclerosis. Electronically Signed: Paulie Rendon MD at 3:35 EST Reading Location ID and State: [id number] [place] Tel , Service support ,
--- NOTE | 2022-01-20 02:22 | EDS_ITS ---
HPI HPI - GI History of Present Illness Chief Complaint: Flank Pain Informant: patient Narrative Narrative: Patient is a 66-year-old male with history of hypothyroid, hypertension, hyperlipidemia and kidney stones presenting with left-sided flank pain. He states he was admitted about 2 years ago for kidney stone. This feels like the same presentation. He had an episode of left-sided flank pain, nausea and vomiting 2 nights ago. He drink lots of water and his pain eventually subsided. Tonight around 7 or 8 PM the pain came back but more severe. He has nausea as well but no vomiting at this time. He has an old Percocet prescription which she took but it did not help with his pain. I denies any changes bowel habits. Denies any hematuria or dysuria. Notes he has had urinary frequency but attributes that to increasing his fluid intake. No other complaints at this time. PFSH PFSH Home Medications atenolol 25 mg tablet 25 mg PO BID blood pressure 10/15/14 [History Last Taken 11/15/19] isosorbide mononitrate 20 mg tablet 20 mg PO DAILY blood pressure 10/15/14 [History Last Taken 11/15/19] levothyroxine 75 mcg tablet 75 mcg PO DAILY thyroid 10/15/14 [History Last Taken 11/15/19] sertraline 25 mg tablet (Zoloft) 25 mg PO DAILY depression 10/15/14 [History Last Taken 11/15/19] simvastatin 20 mg tablet (Zocor) 20 mg PO QHS cholesterol 10/15/14 [History Last Taken 11/15/19] tamsulosin 0.4 mg capsule 0.4 mg PO DAILY@1730 #30 caps 11/17/19 [Rx Last Taken Unknown] aspirin 81 mg capsule 81 mg PO DAILY 01/20/22 [History Last Taken Unknown] meloxicam 15 mg tablet 15 mg PO DAILY 01/20/22 [History Last Taken Unknown] ondansetron HCl 4 mg tablet 4 mg PO Q6H PRN nausea and vomiting 3 days #12 tabs 01/20/22 [Rx Last Taken Unknown] oxycodone-acetaminophen 5 mg-325 mg tablet (Percocet) 1 tab PO Q6H PRN pain 3 days #12 tabs 01/20/22 [Rx Last Taken Unknown] tamsulosin 0.4 mg capsule (Flomax) 0.4 mg PO DAILY #7 caps 01/20/22 [Rx Last Taken Unknown] Allergy/AdvReac Type Severity Reaction Status Date / Time No Known Allergies Allergy Verified 01/20/22 01:57 Surgical History History of open heart surgery History of quadruple bypass Social History Smoking Status: Never smoker ROS ROS ED Constitutional Constitutional ED: Denies chills or fever(s) ENT ENT ED: Denies rhinorrhea or sore throat Cardiovascular Cardiovascular: Denies chest pain or palpitations Respiratory/Chest Respiratory/Chest: Denies cough Gastrointestinal Gastrointestinal: Reports abdominal pain, nausea and vomiting; Denies constipation or diarrhea Genitourinary Genitourinary ED: Reports urinary frequency; Denies dysuria or hematuria Musculoskeletal Musculoskeletal: Reports back pain; Denies arthralgias, myalgias or neck pain Integumentary Denies rash Neurologic Neurologic: Denies headache(s), paresthesias or weakness Psychiatric Psychiatric: Denies anxiety Hematologic/Lymphatic Hematologic/Lymphatic: Denies easy bleeding or easy bruising EXAM Physical Exam Const Vital Signs: 01/20/22 01:51 01/20/22 02:21 01/20/22 04:33 Temperature 96.9 F L Temperature Source Temporal Pulse Rate 84 Respiratory Rate 18 Blood Pressure 176/110 H Blood Pressure Mean 132 Pulse Ox 96 99 99 Oxygen Delivery Method Room Air Room Air Room Air Positive well nourished and well developed Constitutional Narrative: Uncomfortable appearing General Appearance ED: well developed HEENT Reports moist mucous membranes Eyes PERRL and EOMs intact bilaterally Neck supple Resp normal respiratory effort and clear to auscultation bilaterally Cardio regular rate, regular rhythm and no murmurs GI non-tender, non-distended and no masses Palpation: soft; Negative for tender, guarding or rigid Back/Spine no CVA tenderness Extremity full ROM Extremity Narrative: 2+ bilateral DP pulses General Extremety ED: Negative for edema General Extremity: Negative for edema Neuro moves all extremities Neuro Narrative: No focal deficits appreciated Sensorium / Orientation: alert, oriented to person, oriented to place and oriented to time Psych mental status grossly normal and thought process normal Skin no wounds Rashes: no rashes MDM MDM MDM Narrative Medical decision making narrative: Patient is a 66-year-old male presenting with left flank pain. He has a history of kidney stones. He had some pain the day before yesterday however have resolved and then returned tonight. Patient stone and was admitted for pain control/consult to urology with Dr. Gibbs however he never required any intervention as he passed the stone spontaneously. Patient is given IV Toradol, morphine Zofran and IV fluids in the ER. On repeat evaluation he is pain-free and feels much better. He has a mild leukocytosis of 12.6 and his creatinine is 1.3 no other abnormalities and urinalysis shows 5 ketones with 25 occult blood but no other abnormalities.Patient's creatinine is near his baseline. 2 years ago he was 1.25 and 0.91 during his hospitalization. Patient is given outpatient follow-up with urology. Counseled on straining his urine as well as symptomatic treatment. We will restart him on Flomax as well as prescribe him Percocet and Zofran. Patient counseled return precautions. He verbalizes good understand this plan. Discharged home in stable condition. Lab Data Attestation: I reviewed the patient's lab results. Labs: Laboratory Results - last 24 hr 01/20/22 01/20/22 01/20/22 02:44 02:44 02:44 WBC 12.6 H RBC 4.83 Hgb 14.4 Hct 42.8 MCV 88.6 MCH 29.8 MCHC 33.6 RDW Std Deviation 41.6 RDW Coeff of Olaf 12.8 Plt Count 243 MPV 10.3 Immature Gran % (Auto) 0.600 Neut % (Auto) 81.6 H Lymph % (Auto) 8.3 L Kendall % (Auto) 8.2 Eos % (Auto) 1.0 Baso % (Auto) 0.3 Absolute Neuts (auto) 10.3 H Absolute Lymphs (auto) 1.04 Nucleated RBC % 0 Sodium 136 Potassium 3.8 Chloride 102 Carbon Dioxide 25.0 Anion Gap 9 BUN 30 H Creatinine 1.30 Estim Creat Clear Calc 68.54 Est GFR (MDRD) Af Amer 71 Est GFR (MDRD) Non-Af 58 L BUN/Creatinine Ratio 23.1 H Glucose 102 Calcium 8.9 Urine Color Yellow Urine Clarity Clear Urine pH 6.0 Ur Specific [place] 1.020 Urine Protein Negative Urine Glucose (UA) Normal Urine Ketones 5 H Urine Occult Blood 25 H Urine Nitrite Negative Urine Bilirubin Negative Urine Urobilinogen Normal Ur Leukocyte Esterase Negative Urine RBC 0 SEEN Urine WBC 0 SEEN Ur Squamous Epith Cells 0 SEEN Urine Bacteria 0 SEEN Urine Mucus 0 SEEN Radiography Diagnostic Testing: Clinical Impression(s) from Imaging Studies Abdomen/Pelvis CT 01/20/22 02:21 IMPRESSION: 4 mm distal left ureteral stone with moderate obstruction. Residual bilateral renal stones. Other chronic findings include prostate enlargement, bilateral L5 spondylolysis, and atherosclerosis. Electronically Signed: Paulie Rendon MD at 3:35 EST Reading Location ID and State: [facility] / [place] Tel , Service support , Discharge Plan Triage Chief Complaint: Flank Pain ED Provider: Catalina Nicolas Dx/Rx/DC Orders Clinical Impression: Kidney stone on left side, Renal colic on left side Instructions: ED Kidney Stone w/ Colic Prescriptions: New oxycodone-acetaminophen [Percocet] 5-325 mg tablet 1 tab PO Q6H PRN (Reason: pain) 3 Days Qty: 12 0RF tamsulosin [Flomax] 0.4 mg capsule 0.4 mg PO DAILY Qty: 7 0RF ondansetron HCl 4 mg tablet 4 mg PO Q6H PRN (Reason: nausea and vomiting) 3 Days Qty: 12 0RF No Action isosorbide mononitrate 20 MG tablet 20 mg PO DAILY atenolol 25 MG tablet 25 mg PO BID levothyroxine 75 MCG tablet 75 mcg PO DAILY simvastatin [Zocor] 20 MG tablet 20 mg PO QHS sertraline [Zoloft] 25 MG tablet 25 mg PO DAILY tamsulosin 0.4 MG capsule 0.4 mg PO DAILY@1730 Qty: 30 2RF meloxicam 15 mg tablet 15 mg PO DAILY aspirin 81 mg Capsule 81 mg PO DAILY Primary Care Provider: Danny Connelly Referrals: Danny Connelly MD [Primary Care Provider] - Ozzie Gibbs MD [Med Staff - Active Staff] - 3-5 Days Activity Restrictions/Additional Instructions: You have a 4 mm stone in the left ureter which is likely causing your pain and symptoms today. You have larger stones in your left kidney. I encourage that you follow-up with urology. Make sure you are drinking lots of water. Disposition Disposition: Home, Self Care Discharge Date/Time: 01/20/22 05:30
[2022-01-20] MEDS: Ondansetron 4 MG/2 ML Vial IV (02:39)
[2022-01-20] MEDS: Ketorolac 15 MG/ML Vial IV (02:39)
[2022-01-20] MEDS: morphine 8 MG/ML Syringe IV (02:40)
[2022-01-20] MEDS: 0.9% Normal Saline 1,000 ML 250 ML IV (02:42)
[2022-01-20 03:00] LABS: Bacteria 0 SEEN /hpf (None Seen); Mucous, Urine 0 SEEN /hpf (<or=2+); Red Blood Cells-Urine 0 SEEN /hpf (0-5); Squamous Epithelial Cells - UA 0 SEEN /hpf (0-5); White Blood Cells 0 SEEN /hpf (0-5)
[2022-01-20 03:02] LABS: Absolute Lymphocyte Count 1.04 X10^3/uL (0.83-4.51); Absolute Neutrophil Count 10.3 X10^3/uL (2.0-7.7); Basophil# 0.04 X10^3/uL; Basophil% 0.3 % (0-1); Eosinophil# 0.12 X10^3/uL; Hematocrit 42.8 % (40-54); Hemoglobin 14.4 g/dL (13.0-16.5); Lymphocyte # 1.04 X10^3/ul (0.83-4.51); Lymphocyte % 8.3 % (19-41); Mean Corp Hgb Conc 33.6 g/dL (32-36); Mean Corpuscular Hgb 29.8 pg (27.0-32.0); Mean Corpuscular Volume 88.6 fL (80-94); Mean Platelet Vol. 10.3 fl (6.2-12.0); Monocyte# 1.03 X10^3/uL; Monocyte% 8.2 % (0-10); NRBC Flagged by Analyzer 0 % (0-5); Neutrophil # 10.25 X10^3/uL (2.7-7.7); Neutrophil % 81.6 % (47-70); Platelet Count 243 K/mm3 (150-450); RBC Distribution Width CV 12.8 % (11.6-14.6); RBC Distribution Width SD 41.6 fl (35.1-43.9); Red Blood Count 4.83 M/mm3 (4.6-6.2); White Blood Count 12.6 K/mm3 (4.4-11.0)
[2022-01-20 03:17] LABS: Color, Urine Yellow (Yellow); Glucose, Dipstick Normal (Normal); Ketone-Dipstick 5 mg/dl (Negative); Leukocyte Esterase-Dipstick Negative /ul (Negative); Nitrite-Dipstick Negative (Negative); Occult Blood-Urine 25 /ul (Negative); Protein-Dipstick Negative (Negative); Urine Bilirubin Dipstick Negative (Negative); Urine Clarity Clear (Clear); Urine Urobilinogen Normal (Normal)
[2022-01-20 03:22] LABS: Anion Gap 9 (5-15); BUN 30 mg/dL (7-18); BUN/Creat Ratio 23.1 RATIO (10-20); Calcium,Total 8.9 mg/dL (8.5-10.1); Chloride 102 mmol/L (98-107); EST Glomerular Filtration Rate 58 mL/min (>60); Est Glom Filt Rate - Afr Amer 71 mL/min (>60); Estimated Creatinine Clearance 68.54 ml/min; Glucose 102 mg/dL (74-106); Potassium 3.8 mmol/L (3.5-5.1); Sodium Level 136 mmol/L (136-145)
[2022-01-20 04:33] VITALS: O2SAT 99
== END 2022-01-20 05:30 | disposition home or self-care (01) ==
PROVIDERS: Emergency Provider Emergency Medicine; PCP Family Medicine; Visit Provider Emergency Medicine
DX: N20.2 Calculus of kidney with calculus of ureter (principal); E78.5 Hyperlipidemia, unspecified; R35.0 Frequency of micturition; I10 Essential (primary) hypertension; R11.0 Nausea; Z79.82 Long term (current) use of aspirin
CPT/HCPCS: 74176; 80048; 81001; 85025; 96374; 96375; 99284; J7030; A4216; J2405

== ENCOUNTER → 2022-06-21 | Outpatient (CLI) | payer OTHER, SELFPAY ==
--- NOTE | 2022-06-21 11:34 | RAD_ITS ---
STUDY: X-RAY - LEFT KNEE REASON FOR EXAM: Male, 66 years old. INJURY OF LEFT KNEE. TECHNIQUE: 3 view(s) of the knee. COMPARISON: Comparison is made with prior study dated April 27, 2014. FINDINGS: Normal visualized distal femur. Normal visualized proximal tibia and fibula. Normal proximal tibiofibular articulation. There is mild degenerative arthrosis of the medial femorotibial compartment. There is mild degenerative arthrosis of the lateral femorotibial compartment. There is severe degenerative arthrosis of the patellofemoral articulation. Soft tissue laceration in the suprapatellar region. Atherosclerotic calcification. RAD/Knee 4 or More Views IMPRESSION: Degenerative arthrosis. Soft tissue swelling in soft tissue laceration in the suprapatellar region. Electronically Signed: Carlos Enrique Romero MD at 13:43 EDT ,
== END | disposition home or self-care (01) ==
PROVIDERS: PCP Family Medicine; Visit Provider Family Medicine
DX: S89.92XA Unspecified injury of left lower leg, initial encounter (principal)
CPT/HCPCS: 73564

== ENCOUNTER → 2022-07-17 | Outpatient (CLI) | payer OTHER, MEDICARE, SELFPAY | END | disposition home or self-care (01) | PROVIDERS: PCP Family Medicine; Visit Provider Otolaryngology | DX: J01.90 Acute sinusitis, unspecified (principal) | CPT/HCPCS: 87070; 87186; 87205 ==

== ENCOUNTER → 2023-03-25 | Outpatient (CLI) | payer OTHER, MEDICARE, SELFPAY ==
--- OUTSIDE RECORDS SUMMARY | 2023-03-25 06:08 | XMS RPT_ITS | CCD ---
Author Name Unknown Address [address] [place] [address] Organization [facility] Care Team Providers Care Executive Housekeeper Name Role Phone Mary Jane Timmons Unavailable Unavailable Mary Jane Timmons Unavailable Unavailable Mary Jane Timmons Unavailable Unavailable MARY JANE TIMMONS Consulting Unavailable ISABELLE JAIME DR Attending Unavailable ISABELLE JAIME DR Primary Care Unavailable ISABELLE JAIME DR Admitting Unavailable PROVIDER, UNKNOWN Consulting Unavailable PROVIDER, UNKNOWN Consulting Unavailable Michael Scott PA-C Unavailable Unavailable Unavailable Glynn Sauceda LPN Unavailable Unavailable Medications Current Medications Medication Drug Class(es) Dates Sig (Normalized) Sig (Original) atenolol 25 mg oral tablet (4 sources) beta-Adrenergic Kristofer atenoloL 25 mg tablet ; daily (25 mg) 24 hr buPROPion hydrochloride 300 mg extended release oral tablet (4 sources) Aminoketone buPROPion HCL XL 300 mg 24 hr tablet, extended release ; daily (300 mg) 24 hr isosorbide mononitrate 60 mg extended release oral tablet (4 sources) Nitrate Vasodilator isosorbide mononitrate ER 60 mg tablet,extended release 24 hr ; daily (60 mg) levothyroxine sodium 0.05 mg oral tablet (4 sources) l-Thyroxine levothyroxine 50 mcg tablet ; daily (50 mcg) omeprazole 20 mg delayed release oral capsule (8 sources) Proton Pump Inhibitor Start: 02-06-2023 omeprazole 20 mg capsule,delayed release ; 1 (one) capsule daily 30 min before first meal for 0 days Quantity: 60 {Capsule} Refills: 0 Ordered: 06-Mar-2023 AXEL Scott Start: 06-Mar-2023 Problems Active Problems Problem Classification Problem Date Documented Da te Episodic/Chronic Coronary atherosclerosis and other heart disease (8 sources) Coronary arteriosclerosis; Translations: [Atherosclerotic heart disease of [place] coronary artery without angina pectoris] 02-06-2023 Chronic Past or Other Problems Problem Classification Problem Date Documented Da te Episodic/Chronic Unclassified (4 sources) New Pt, needs established - New Pt, here to get established for future care. Previous Doctor retired. 02-06-2023 Unclassified (1 source) Pre-operative clearance 03-06-2023 Unclassified (2 sources) Pre-operative clearance - Surgical procedure(s) planned: other (spinal fusion). Date of procedure: (03/14/23) Surgeon: (Pooja) and Location of procedure: ([facility]) There have been no problems with general anesthesia or blood/blood products. 03-06-2023 Results Test Name Value Interpretation Reference Range Facil ity Vital Signs Date Time Vital Sign Value Performing Clinician Faci lity 03-06-2023 13:23-0500 Body height 193.04 cm Glynn Sauceda DECORATING SUPERVISOR [facility] [employer]. 03-06-2023 13:23-0500 Body mass index (BMI) [Ratio] 28.73 kg/m2 Glynn Sauceda DECORATING SUPERVISOR [facility], [facility].; [employer] 03-06-2023 13:23-0500 Body surface area Derived from formula 2.38 m2 Glynn Sauceda DECORATING SUPERVISOR [facility] [employer]. 03-06-2023 13:23-0500 Body weight 107.05 kg Glynn Sauceda DECORATING SUPERVISOR [place] [employer] [facility], [facility].; [employer]. 03-06-2023 13:23-0500 Diastolic blood pressure 57 mm[Hg] Glynn Sauceda DECORATING SUPERVISOR [facility], [facility].; [employer], [employer]. Encounters Encounter Date Encounter Type Care Provider Facility Start: 03-06-2023 End: 03-06-2023 Patient encounter procedure Michael Scott PA-C [facility] Phone[facility] [employer] [facility] [employer]. Start: 03-06-2023 End: 03-06-2023 Preprocedural examination done Michael Scott PA-C Work Phone: [employer] Start: 03-06-2023 Review Michael cline PA-C Work Phone: [employer] Start: 02-06-2023 End: 02-06-2023 Office outpatient new 30 minutes Michael Scott PA-C Work Phone: [employer]. Start: 03-01-2021 End: 03-01-2021 ambulatory MARY JANE TIMMONS [facility] Start: 11-30-2016 End: 12-01-2016 Ambulatory Mary Jane Fernandezyuki Facility:[facility] Admission to [facility] Michael Scott PA-C Work Phone: [employer] Procedures Date Procedure Procedure Detail Performing Clinician Quadrupal bypass Glynn spears LPN Payers Date Payer Category Payer Private Health Insurance 1955 Unknown [id number] Private Health Insurance [id number] Unknown UMR Social History Date Type Detail Facility Alcohol Use: Alcohol Use: ; O ccasional alcohol use. [employer] No Caffeine Use No Caffeine Use [facility].; [employer]. Tobacco Use: Tobacco Use: ; Never smoker. [employer] [facility] [employer] [facility]. Work Phone: Occasional alcohol use [facility] [employer]. Work Phone: Never smoked tobacco [employer]. Work Phone: Summary Purpose Family History No Family History Records FoundNo Family History Records FoundNo Family History Records Found Advance Directives No Advanced Directives Records FoundNo Advanced Directives Records FoundNo Advanced Directives Records Found Additional Source Comments (unrecognized sect ion and content) No Status Records FoundNo Status Records FoundNo Status Records Found INFORMATION SOURCE (unrecogn ized section and content) DATE CREATED AUTHOR AUTHOR'S ORGANIZ ATION 12/25/2020 [facility] DATE CREATED AUTHOR AUTHOR'S ORGANIZ ATION 03/02/2021 [facility] FOR RECORDS PERTAINING TO PATIENTS WHO ARE OR HAVE BEEN ENROLLED IN A CHEMICAL DEPENDENCY/SUBSTANCEABUSE PROGRAM, SOME INFORMATION MAY BE OMITTED. This clinical summary was aggregated from multiple sources. Caution should be exercised in using it in the provision of clinical care. This summary normalizes information from multiple sources, and as a consequence, information in this document may materially change the coding, format and clinical context of patient data. In addition, data may be omitted in some cases. CLINICAL DECISIONS SHOULD BE BASED ON THE PRIMARY CLINICAL RECORDS. [facility] [employer] [facility]. provides no warranty or guarantee of the accuracy or completeness of information in this document.
--- NOTE | 2023-03-25 06:10 | ECHOD_ITS ---
Reason For Study: PRE-OP Procedure This was a 2D Doppler, Color Flow transthoracic echocardiogram. Exam performed in department. Left Ventricle Normal size and thickness. Sigmoid septum. The left ventricular ejection fraction is 60 %. Normal diastology for age. Right Ventricle Normal right ventricle. Atria The left atrium is severely enlarged. Mitral Valve Mild mitral valve thickening. Redundant chords. Tricuspid Valve Trivial tricuspid valve insufficiency. Normal pulmonary artery pressure. Aortic Valve Aortic sclerosis, no stenosis. Pulmonic Valve The pulmonic valve is not well visualized. Great Vessels Normal sized aortic root. Suspect atherosclerosis of the aortic arch. Pericardium/Pleural No pericardial effusion. MMode/2D Measurements & Calculations LVIDd: 5.0 cm IVSd: 1.0 cm Ao root diam: 3.7 cm LVIDs: 3.4 cm LVPWd: 0.99 cm RVDd: 4.0 cm FS: 32.0 % LAV(MOD-bp): 52.7 ml LVAd ap4: 33.5 cm2 SV(MOD-sp4): 68.1 ml LAV(MOD-bp) Indexed: 22.0 ml/m2 LVLd ap4: 8.6 cm LAV(MOD-sp2): 53.9 ml EDV(MOD-sp4): 109.6 ml LAV(MOD-sp4): 51.0 ml EDV(sp4-el): 111.1 ml LVAs ap4: 19.6 cm2 LVLs ap4: 7.7 cm ESV(MOD-sp4): 41.5 ml ESV(sp4-el): 42.3 ml EF(MOD-sp4): 62.1 % EF(sp4-el): 62.0 % SV(sp4-el): 68.9 ml LA A4 area: 19.3 cm2 LA dimension(2D): 4.3 cm RA A4 area: 17.2 cm2 TAPSE: 2.0 cm Time Measurements MV dec time: 0.24 sec Doppler Measurements & Calculations MV E max ricky: 69.1 cm/sec Lat Peak E' Ricky: 10.4 cm/sec Med Peak E' Ricky: 8.1 cm/sec MV A max ricky: 77.5 cm/sec E/E' lat: 6.6 E/E' med: 8.5 MV E/A: 0.89 Ao V2 max: 134.6 cm/sec LV V1 max: 110.9 cm/sec PA V2 max: 111.7 cm/sec Ao max P.3 mmHg LV V1 max P.9 mmHg TR max ricky: 256.1 cm/sec TR max P.2 mmHg ECHO/Echo Complete Interpretation Summary The left ventricular ejection fraction is 60 %. The left atrium is severely enlarged. Mild mitral valve thickening. Redundant chords. Aortic sclerosis, no stenosis. Suspect atherosclerosis of the aortic arch Ordering Physician: Mykel Johnson Referring Physician: SIMON MENDEZ Performed By: Destiny العراقي RDCS
--- NOTE | 2023-03-25 18:16 | STRESSREP ---
Stress Test Report Date: 03/25/2023 Procedure: Pharmacologic stress nuclear imaging study Indications: Coronary artery disease Consent: Per the patient Procedure: The patient underwent pharmacologic (Regadenoson 0.4mg ) evaluation with a peak heart rate of 100 beats per minute (66%predicted maximal heart rate) and a peak blood pressure of 152/90 mmHg. The baseline ECG demonstrated sinus rhythm. The peak pharmacologic ECG demonstrated no ischemic changes. There were no cardiac dysrhythmias pretest, during pharmacologic infusion, or recovery. There was no complaint of chest discomfort during pharmacologic infusion or recovery. The patient was injected with 14.8 millicuries of technetium 99m Cardiolite and subsequently rest SPECT Cardiolite nuclear imaging was obtained in the horizontal long, vertical long, and short axis views. The patient underwent pharmacologic (Regadenoson) evaluation. The patient was injected with 44.3 millicuries of technetium 99m Cardiolite and subsequently stress SPECT Cardiolite nuclear imaging was obtained in the horizontal long, vertical long, and short axis views. A gated Cardiolite study at peak stress was obtained. The examination was stopped secondary to completion of protocol. Rest and stress SPECT Cardiolite nuclear imaging status post realignment, normalization, and attenuation correction demonstrate no fixed or reversible perfusion defects. There is end systolic thickening and brightening. The gated Cardiolite study demonstrates myocardial thickening and inward wall motion. The reported LVEF is 64%. Impression: 1. Pharmacologic (Regadenoson) evaluation 2. Peak pharmacologic ECG with no ischemic changes. 3. There were no cardiac dysrhythmias pretest, during pharmacologic infusion, or recovery. 5. Rest and stress SPECT Cardiolite nuclear imaging demonstrate relative uniform tracer uptake and myocardial perfusion appearing within normal limits. 6. The gated Cardiolite study reports an LVEF of 64%. This note was generated with [employer] software. It may contain incorrect words, spelling, and punctuation that were not noted in checking the note before signing. 03/25/2023
== END | disposition home or self-care (01) ==
PROVIDERS: PCP Physician Assistant; Referring Provider Internal Medicine Cardiovascular Disease; Visit Provider Internal Medicine Cardiovascular Disease
DX: Z01.810 Encounter for preprocedural cardiovascular examination (principal); I25.10 Atherosclerotic heart disease of native coronary artery without angina pectoris
CPT/HCPCS: 78452; 93017; 93306; A9500; A4216; J2785

== ENCOUNTER 2023-03-28 07:08 | Observation (INO) | payer OTHER, MEDICARE, SELFPAY ==
--- NOTE | 2023-03-06 08:38 | EKG12_ITS ---
Test Reason : PRE OP Blood Pressure : / mmHG Vent. Rate : 076 BPM Atrial Rate : 076 BPM P-R Int : 184 ms QRS Dur : 086 ms QT Int : 376 ms P-R-T Axes : 053 070 044 degrees QTc Int : 423 ms Normal sinus rhythm Normal ECG Confirmed by KELLI LEONE, NAOMI ([id number]), news assignment editor HAL ANTHONY ([id number]) on 03/06/2023 2:17:04 PM Referred By: Braydon Patton Confirmed By:NAOMI PEREIRA MD
--- NOTE | 2023-03-06 08:40 | RAD_ITS ---
STUDY: XR Chest 2 Views 03/06/2023 8:47 AM REASON FOR EXAM: Male, 67 years old. PREOP COMPARISON: None TECHNIQUE: XR Chest 2 Views FINDINGS: There is no demonstrated pleural abnormality. There are multiple median sternotomy wires. Normal heart size. Normal mediastinum. Normal naty. Prominent appearing increased interstitial lung markings. Normal visualized pulmonary arteries. There is atherosclerotic calcification of the aortic arch with tortuosity. There are diffuse degenerative changes of the visualized thoracic spine. There is degenerative osteoarthritis of the bilateral shoulders. There are no acute findings of the upper abdomen. RAD/Chest PA and Lateral IMPRESSION: There are no acute findings. Electronically Signed: Sancho Downey MD at 9:03 EST ,
[2023-03-06 09:38] LABS: Absolute Lymphocyte Count 1.44 X10^3/uL (0.83-4.51); Absolute Neutrophil Count 4.7 X10^3/uL (2.0-7.7); Basophil# 0.05 X10^3/uL; Basophil% 0.7 % (0-1); Eosinophil# 0.24 X10^3/uL; Eosinophils% 3.3 % (0-5); Hematocrit 48.4 % (40-54); Hemoglobin 16.3 g/dL (13.0-16.5); Lymphocyte # 1.44 X10^3/ul (0.83-4.51); Lymphocyte % 20.1 % (19-41); Mean Corp Hgb Conc 33.7 g/dL (32-36); Mean Corpuscular Volume 89.1 fL (80-94); Mean Platelet Vol. 9.5 fl (6.2-12.0); Monocyte# 0.67 X10^3/uL; Monocyte% 9.3 % (0-10); NRBC Flagged by Analyzer 0 % (0-5); Neutrophil # 4.74 X10^3/uL (2.7-7.7); Platelet Count 323 K/mm3 (150-450); RBC Distribution Width CV 12.6 % (11.6-14.6); RBC Distribution Width SD 41.1 fl (35.1-43.9); Red Blood Count 5.43 M/mm3 (4.6-6.2); White Blood Count 7.2 K/mm3 (4.4-11.0)
[2023-03-06 10:13] LABS: Partial Thromboplast Time 30.3 Seconds (24.1-36.2)
[2023-03-06 10:16] LABS: Anion Gap 5 (5-15); BUN 18 mg/dL (7-18); BUN/Creat Ratio 17.8 RATIO (10-20); Calcium,Total 9.5 mg/dL (8.5-10.1); Chloride 106 mmol/L (98-107); Creatinine, Serum 1.01 mg/dL (0.70-1.30); EST Glomerular Filtration Rate 78 mL/min (>60); Est Glom Filt Rate - Afr Amer 94 mL/min (>60); Glucose 85 mg/dL (74-106); Potassium 4.2 mmol/L (3.5-5.1); Sodium Level 136 mmol/L (136-145)
[2023-03-06 10:39] LABS: Thyroid Stim Hormone (TSH) 2.72 uIU/mL (0.358-3.74)
[2023-03-06 10:48] LABS: International Normalized Ratio 1.1; Prothrombin Time (Protime)PT. 14.7 SECONDS (11.7-14.9)
[2023-03-28] VITALS (13 sets, daily range): BP systolic 103–129; BP diastolic 41–99; PULSE 74–99; RESP 16–18; TEMP 35.9–37.4; O2SAT 91–98; BMI 27.9
[2023-03-28] MEDS: Lactated Ringers 1,000 ML 15 ML IV (06:30)
--- NOTE | 2023-03-28 06:30 | RAD_ITS ---
PROCEDURE: Intraoperative fluoroscopy provided for L5-S1 fusion. DATE OF EXAMINATION: March 28, 2023 INDICATION: Male, 67 years old. Lumbar fusion. FLUOROSCOPY TIME (if supplied): (2 minutes and 21 seconds) minutes/seconds. 74.55 mGy. 7 images were submitted. RAD/Lumbar Spine 2 or 3 Views IMPRESSION: Intraoperative imaging provided for L4-L5 fusion. Electronically Signed: Carlos Enrique Romero MD at 15:09 EST ,
--- NOTE | 2023-03-28 07:05 | DS.PCM_ITS ---
Providers Date of Admission: 03/28/23 Primary Care Physician: EMILY Bowden Reason For Visit: LUMBAR 5 - SACRAL 1 POSTERIOR LUMBA Medications at Discharge Home Medications atenolol 25 mg tablet 25 mg PO BID blood pressure 10/15/14 isosorbide mononitrate 20 mg tablet 60 mg PO DAILY blood pressure 10/15/14 levothyroxine 75 mcg tablet 50 mcg PO DAILY thyroid 10/15/14 sertraline 25 mg tablet (Zoloft) 50 mg PO DAILY depression 10/15/14 bupropion HCl 300 mg 24 hr tablet, extended release 300 mg PO QHS 02/25/23 cholecalciferol (vitamin D3) 25 mcg (1,000 unit) tablet (Vitamin D3) 25 mcg PO DAILY 02/25/23 omeprazole 20 mg capsule,delayed release 20 mg PO DAILY 02/25/23 rosuvastatin 20 mg tablet 20 mg PO QHS 02/25/23 hydrocodone-acetaminophen 5-325mg 5mg-325mg 1 tab PO Q6H 7 days #28 tabs 03/28/23 Hospital Course Operations - (L5-S1 posterior lumbar interbody fusion, decompression, posterior spinal fusion with instrumentation, use of allograft) Summary of Care Provided Minutes Spent on Discharge: 15 Hospital Course: The patient is a 67-year-old male who underwent L5-S1 fusion on 03/28/2023. He was subsequently admitted. The hospitalist was consulted for medical management. The patient progressed well. His pain was controlled and he was mobilizing well. No significant medical issues were reported. The patient was subsequently discharged home on 03/29/2023 to follow-up with Dr. Patton in 3 weeks Physical Exam Narrative Seen and examined. Lying in bed resting comfortably. Pain minimal. Patient does complain of some numbness and tingling in the right foot. He has been out of bed and ambulating and feels he is getting around well. He denies any other acute numbness tingling weakness or changes in bowel or bladder function Const alert, oriented x3 and no apparent distress General Appearance: cooperative, comfortable and well kempt Neck full ROM General: normal visual inspection Resp normal respiratory effort and normal air movement Effort and Inspection: able to speak in complete sentences Cardio regular rate and peripheral pulses 2+ throughout GI soft to palpation, non-tender and non-distended Back/Spine Back/Spine Narrative: Dressing clean dry and intact. Incision well-approximated with interrupted sutures in place. No tenderness erythema drainage or fluctuance. Drain in place and functioning with small amount of serosanguineous fluid in it. Drain pulled without complication Cervical Spine: cervical ROM normal Thoracic Spine / Upper Back: normal to inspection Lumbar Spine / Lower Back: normal to inspection Extremity normal to inspection, full ROM, normal capillary refill, no clubbing, cyanosis or edema and no calf tenderness Skin no rashes or lesions noted General Skin Exam: no breakdown Neuro oriented x3, CN's II-XII intact bilaterally, moves all extremities, no focal motor deficits, no sensory deficits noted and deep tendon reflexes 2+ bilaterally Neuro Narrative: Patient does have some mild decreased sensation in the right foot Motor Exam: strength 5/5 throughout and muscle tone normal throughout Weight / BMI Weight Weight: 235 lb 14.314 oz Body Mass Index (BMI) 27.9 ABG / Lab / Microbiology Data 03/06/23 08:57 03/06/23 08:57 D/C Instructions Discharge Diet: No restrictions Additional Activity Instructions: Wear back brace at all times. No repetitive bending twisting or lifting greater than 5 pounds. Okay to remove brace to sleep Call your doctor if your incision/area has: Continuous Slow Oozing, Sudden Increased Bleeding, Increased Pain/ Swelling, Increased Redness, Foul Smelling Discharge and Swelling at the incision site Call your doctor if you observe: Fever of 101 or Higher, Coldness, Increased Pain, Numbness or Tingling, Change in Color, Inability to urinate, Inability to have a bowel movement, Using more than 1 pad per hour, Shortness of breath, Dizziness, Fainting spells, Swelling in the ankles, Chest pain, Prolonged hiccupping, Increased palpitations (irregular heartbeat), Calf discomfort and Un controlled pain Cleanse incision/area with: Do not get Incision Wet and Keep Dressing Clean & Dry Additional Dressing/Incision Instructions: Change dressing daily with dry gauze and tape. Leave Dermabond gauze intact over the incision. Use waterproof dressing to shower Additional Instructions: 1. During your procedure, you received sedation through your IV. Please follow these instructions for the next 24 hours: Do not drive a motor vehicle, do not drink any alcoholic beverages, and do not sign any legal documents or make personal or business decisions. A responsible adult should stay with you at least 6 hours after the procedure. 2. Keep your surgical site/incision clean and the dressing dry and intact. You may use an ice pack at the surgical site to reduce any swelling or discomfort. 3. Monitor the incision site for any signs or symptoms of infection. Watch for redness, excessive swelling or drainage, or continued pain at the incision site after 3 days. Contact your physician immediately for a fever, chills or a temperature of 101.5? F or greater. 4. Take your medication exactly as prescribed by your physician. Do not attempt to wean yourself off any of your medications even though your pain is improving. This process needs to be carefully monitored by your doctor. Take any antibiotics prescribed exactly as directed and until they are gone. 5. Avoid stretching, bending, pulling, twisting or any sudden movements. Do not bend or twist at the waist. Wear back brace at all times 6. No lifting greater than 5 pounds. 7. Do not operate a motor vehicle, equipment or a power tool while taking pain medication 8. Do not have any manipulation done by a chiropractor or any other physician without first consulting with the surgeon 9. Please contact our office if you are even scheduled for a CT scan or an MRI. 10. Please call us if you have any questions, problems or concerns. Please Follow Up With: Braydon Patton DO When: 3 weeks Meaningful Use Info Meaningful Use Diagnoses (Choose all that apply): None applicable Discharge Plan Admission Admit Date/Time: 03/28/23 07:08 Attending Provider: Braydon Patton Primary Care Provider: Michael Scott Consulting Providers: Tess Bajwa; Joel White Instructions Additional Instructions / Restrictions: 1. During your procedure, you received sedation through your IV. Please follow these instructions for the next 24 hours: Do not drive a motor vehicle, do not drink any alcoholic beverages, and do not sign any legal documents or make personal or business decisions. A responsible adult should stay with you at least 6 hours after the procedure. 2. Keep your surgical site/incision clean and the dressing dry and intact. You may use an ice pack at the surgical site to reduce any swelling or discomfort. 3. Monitor the incision site for any signs or symptoms of infection. Watch for redness, excessive swelling or drainage, or continued pain at the incision site after 3 days. Contact your physician immediately for a fever, chills or a temperature of 101.5? F or greater. 4. Take your medication exactly as prescribed by your physician. Do not attempt to wean yourself off any of your medications even though your pain is improving. This process needs to be carefully monitored by your doctor. Take any antibiotics prescribed exactly as directed and until they are gone. 5. Avoid stretching, bending, pulling, twisting or any sudden movements. Do not bend or twist at the waist. Wear back brace at all times 6. No lifting greater than 5 pounds. 7. Do not operate a motor vehicle, equipment or a power tool while taking pain medication 8. Do not have any manipulation done by a chiropractor or any other physician without first consulting with the surgeon 9. Please contact our office if you are even scheduled for a CT scan or an MRI. 10. Please call us if you have any questions, problems or concerns. Discharge Orders/Prescriptions Prescriptions: New hydrocodone-acetaminophen 5-325 mg tablet 1 tab PO Q6H 7 Days Qty: 28 0RF Continued isosorbide mononitrate 20 MG tablet 60 mg PO DAILY atenolol 25 MG tablet 25 mg PO BID levothyroxine 75 MCG tablet 50 mcg PO DAILY sertraline [Zoloft] 25 MG tablet 50 mg PO DAILY omeprazole 20 mg capsule,delayed release(DR/EC) 20 mg PO DAILY rosuvastatin 20 mg tablet 20 mg PO QHS bupropion HCl 300 mg tablet extended release 24 hr 300 mg PO QHS cholecalciferol (vitamin D3) [Vitamin D3] 25 mcg (1,000 unit) tablet 25 mcg PO DAILY Discontinued aspirin 81 mg Capsule 81 mg PO DAILY Referrals / Follow Up: Danny Connelly MD [Non-Staff] - Braydon Patton DO [Med Staff - Active Staff] - Disposition Disposition (needs filled in before D/C Order can be placed): Home, Self Care
--- NOTE | 2023-03-28 07:05 | OP.PCM_ITS ---
Report of Operation Date of Procedure: 03/28/23 Description of Surgical Findings:: Preop diagnosis: 1. Lumbar stenosis, L5-S1 with spondylosis 2. Lumbar degenerative disc disease L5-S1 3. L5-S1 spondylolisthesis Postop diagnosis: 1. Lumbar stenosis, L5-S1 with spondylosis 2. Lumbar degenerative disc disease L5-S1 3. L5-S1 spondylolisthesis Procedures performed: 1. L5-S1 posterior lumbar interbody fusion 2. Insertion of intervertebral biomechanical device x1 3. Structural allograft for spinal fusion 4. L5 bilateral laminectomies, foraminotomies, facetectomies, decompression of bilateral nerve roots 5. S1 bilateral laminectomies, foraminotomies, facetectomies, decompression of bilateral nerve roots 6. L5-S1 posterolateral fusion 7. Pedicle screw fixation 8. Local autograft for spinal fusion 9. Neuro monitoring bilateral upper and bilateral lower extremities Statement of medical necessity: The patient is a 67-year-old male with intractable back and leg pain. Image studies confirm the above diagnoses. They have failed conservative treatments to include medications physical therapy and injections and have opted for operative intervention understanding the risk to include but not limited to infection, bleeding, damage to nerves arteries and veins, possibility of spinal fluid leak, nonunion, hardware failure, continued pain, need for further surgery, deep vein thrombosis, pulmonary embolism, heart attack, risk of stroke or . Description of the procedure: The patient was identified in the preoperative holding area. There they received preoperative IV antibiotics and was then transferred to the operative suite. Once in the operative suite after general endotracheal anesthesia was established, the patient was positioned prone on the Harvey operating table. All bony prominences were padded accordingly. The lumbar spine was prepped and draped in a standard fashion. Bear hugger's were not turned on until the drapes were placed and sealed with Ioban. A midline incision was made and taken down to the fascia. The fascia was divided and subperiosteal dissection was taken down to the level of the transverse processes and sacral ala of L5 and S1 bilaterally. Deep retractors were placed. A bone scalpel was used to make cuts in the lamina and then a series of rongeurs and Kerrisons were used removing the spinous process and lamina of L5. Then facetectomies of greater than 50% were performed as well as foraminotomies decompressing the bilateral nerve roots. Given the severity of the stenosis I needed to perform wide bilateral laminectomies and near complete facetectomies in order to decompress the neural elements. Disc created instability necessitat ing the fusion. I then proceeded with interbody fusion. The nerve roots and dura were identified and retracted medially. A knife was utilized to perform an annulotomy at L5-S1. Endplate elevators, curettes, and pituitaries were utilized to remove disc material. Endplates were prepared with a rasp. An appropriate sized intervertebral peek cage device measuring 9 mm was packed with structural allograft and impacted into position completing the posterior lumbar interbody fusion at the L5-S1 level. I then proceeded with pedicle screw fixation. Starting points were found at the junction of the superior articular process and transverse processes and sacral ala. A power bur was used for the starting points. Pedicle probes were placed bilaterally and then 6.5 x 55 mm screws were placed bilaterally at L5 and 6.5 x 40 mm screws were placed bilaterally at S1. The screws were tested with intraoperative neurophysiologic monitoring and tested within normal limits. Connector rods were applied and secured with set screws. I then proceeded with the posterolateral fusion. This was accomplished by decorticating the transverse processes bilaterally at L5 and the sacral ala bilaterally at S1. This decorticated bone was then bridged with local autograft from the decompression as well as morselized cancellous allograft completing the posterolateral fusion of the L5-S1 level. The incision was thoroughly irrigated. Tisseel was placed over the dura as a hemostatic agent. A deep drain was placed. The fascia was closed with #1 Vicryl, subcutaneous with 2-0 Vicryl and skin with 2-0 nylon. A sterile dressing was applied with 4 x 4's ABD and tape. Sponge instrument and needle counts were correct at the end of the case. Neurophysiologic monitoring was maintained at baseline throughout the duration of the case. The patient was extubated and taken to the PACU without incident Surgeon: Braydon Patton Type of Anesthesia: General Drains: Hemovac Estimated Blood Loss (mL): 500 cc Fluids Replaced: 2500 cc Grafts/Implants Used: Unified spine Complications None Admit VTE Documentation VTE Present on Admission: No
--- NOTE | 2023-03-28 07:05 | PCM.PN.ORT ---
Subjective Subjective Seen and examined postop. Resting comfortably. Pain controlled. No complaints Objective Data Objective Data Vital Signs: Vital Signs Temp Pulse Resp BP Pulse Ox O2 Del Method 97.7 F L 85 16 129/99 H 98 Room Air 03/28/23 06:10 03/28/23 06:10 03/28/23 06:10 03/28/23 06:10 03/28/23 06:10 03/28/23 06:10 Oxygen Delivery Method Room Air Weight: 235 lb 14.314 oz Body Mass Index (BMI) 27.9 Lab / Micro Data 03/06/23 08:57 03/06/23 08:57 Physical Exam Const alert, oriented x3 and no apparent distress General Appearance: cooperative, comfortable and well kempt HEENT normocephalic and head/scalp atraumatic Eyes EOMs intact bilaterally and conjunctivae normal Neck full ROM General: normal visual inspection Chest inspection of chest normal and palpation of chest normal Resp normal respiratory effort and normal air movement Cardio regular rate, regular rhythm and peripheral pulses 2+ throughout GI soft to palpation, non-tender and non-distended Back/Spine Back/Spine Narrative: Dressing clean dry and intact Cervical Spine: cervical ROM normal Thoracic Spine / Upper Back: normal to inspection Lumbar Spine / Lower Back: normal to inspection Extremity normal to inspection, full ROM, normal capillary refill, no clubbing, cyanosis or edema and no calf tenderness Skin no rashes or lesions noted General Skin Exam: no breakdown Neuro oriented x3, CN's II-XII intact bilaterally, moves all extremities, no focal motor deficits, no sensory deficits noted and deep tendon reflexes 2+ bilaterally Motor Exam: muscle tone normal throughout Assessment & Plan Assessment/Plan (1) Lumbar stenosis: PLAN: Okay to admit to floor See orders Discharge planning, likely home tomorrow
[2023-03-28] MEDS: Cefazolin 2 GM in 0.9% Normal Saline (100mL Bag) 100 ML IV (07:30)
[2023-03-28] MEDS: THROMBIN (RECOMBINANT) 20,000 UNIT VIAL 20000 UNIT TOPICAL (08:28)
[2023-03-28] MEDS: Heparin 10,000 UNITS/10 ML Vial 10000 UNITS (08:28)
[2023-03-28] MEDS: Bupivacaine 0.25% 30 ML Vial (11:41)
[2023-03-28 13:53] LABS: Bacteria 0 SEEN /hpf (None Seen); Mucous, Urine 0 SEEN /hpf (<or=2+); Squamous Epithelial Cells - UA 0 SEEN /hpf (0-5)
[2023-03-28] MEDS: Lactated Ringers 1,000 ML 100 ML IV (14:05)
[2023-03-28] MEDS: Pantoprazole Sodium 20 MG Tablet PO (14:06)
[2023-03-28] MEDS: Sertraline 50 MG Tablet PO (14:06)
[2023-03-28] MEDS: Acetaminophen 500 MG Tablet 1000 MG PO ×2 (14:06→21:32)
[2023-03-28 14:16] LABS: Color, Urine Yellow (Yellow); Glucose, Dipstick Normal (Normal); Ketone-Dipstick Negative (Negative); Leukocyte Esterase-Dipstick 25 /ul (Negative); Nitrite-Dipstick Negative (Negative); Occult Blood-Urine 250 /ul (Negative); Protein-Dipstick 15 mg/dl (Negative); Urine Bilirubin Dipstick Negative (Negative); Urine Clarity Cloudy (Clear); Urine Urobilinogen Normal (Normal)
[2023-03-28 14:23] LABS: Red Blood Cells-Urine 25-50 SEEN /hpf (0-5); Uric Acid Crystals Ur 2+ /hpf (<or=1+); White Blood Cells 0-5 SEEN /hpf (0-5)
--- OUTSIDE RECORDS SUMMARY | 2023-03-28 14:40 | XMS RPT_ITS | CCD ---
Author Name Unknown Address [id number] [place] [address] Organization [facility] Care Team Providers Care Cover Stripper Name Role Phone Mary Jane Timmons Unavailable [...] Sig (Original) atenolol 25 mg oral tablet (5 sources) beta-Adrenergic Kristofer atenoloL 25 mg tablet ; daily (25 mg) 24 hr buPROPion hydrochloride 300 mg extended release oral tablet (5 sources) Aminoketone buPROPion HCL XL 300 mg 24 hr tablet, extended release ; daily (300 mg) 24 hr isosorbide mononitrate 60 mg extended release oral tablet (5 sources) Nitrate Vasodilator isosorbide mononitrate ER 60 mg tablet,extended release 24 hr ; daily (60 mg) levothyroxine sodium 0.05 mg oral tablet (5 sources) l-Thyroxine levothyroxine 50 mcg tablet ; daily (50 mcg) omeprazole 20 mg delayed release oral capsule (10 sources) Proton Pump Inhibitor Start: 02-06-2023 omeprazole 20 mg capsule,delayed release ; 1 (one) capsule daily 30 min before first meal for 0 days Quantity: 60 {Capsule} Refills: 0 Ordered: 06-Mar-2023 AXEL Scott Start: 06-Mar-2023 Problems Active Problems Problem Classification Problem Date Documented Da te Episodic/Chronic Coronary atherosclerosis and other heart disease (10 sources) Coronary arteriosclerosis; Translations: [Atherosclerotic heart disease of [place] coronary artery without angina pectoris] 02-06-2023 Chronic Past or Other Problems Problem Classification Problem Date Documented Da te Episodic/Chronic Unclassified (5 sources) New Pt, needs established - New Pt, here to get established for future care. Previous Doctor retired. 02-06-2023 Unclassified (1 source) Pre-operative clearance 03-06-2023 Unclassified (3 sources) Pre-operative clearance - Surgical procedure(s) planned: other (spinal fusion). Date of procedure: (03/14/23) Surgeon: (Pooja) and Location of procedure: ([facility]) There have been no problems with general anesthesia or blood/blood products. 03-06-2023 Results Test Name Value Interpretation Reference Range Facil ity Vital Signs Date Time Vital Sign Value Performing Clinician Faci lity 03-06-2023 13:23-0500 Body height 193.04 cm Glynn Sauceda FIELD ATTENDANT [facility] [employer], [employer]. 03-06-2023 13:23-0500 Body mass index (BMI) [Ratio] 28.73 kg/m2 Glynn Sauceda FIELD ATTENDANT [facility], [facility].; [employer] 03-06-2023 13:23-0500 Body surface area Derived from formula 2.38 m2 Glynn Sauceda FIELD ATTENDANT [facility] [employer], [employer]. 03-06-2023 13:23-0500 Body weight 107.05 kg Glynn Sauceda FIELD ATTENDANT [facility], [facility].; [employer], [employer]. 03-06-2023 13:23-0500 Diastolic blood pressure 57 mm[Hg] Glynn Sauceda FIELD ATTENDANT [facility], [facility].; [employer], [employer]. Encounters Encounter Date Encounter Type Care Provider Facility Start: 03-06-2023 End: 03-06-2023 Patient encounter procedure Michael Scott PA-C [facility] Start: 03-06-2023 End: 03-06-2023 Preprocedural examination done Michael Scott PA-C Work Phone: [employer]. Start: 03-06-2023 Review Michael cline PA-C Work Phone: [employer] Start: 02-06-2023 End: 02-06-2023 Office outpatient new 30 minutes Michael Scott PA-C Work Phone: [employer]. Start: 03-01-2021 End: 03-01-2021 ambulatory MARY JANE TIMMONS [facility] Start: 11-30-2016 End: 12-01-2016 Ambulatory Mary Jane Fernandezyuki Facility:[facility] Admission to [facility] Michael Scott PA-C Work Phone: [employer]. Procedures Date Procedure Procedure Detail Performing Clinician Quadrupal bypass Glynn spears LPN Payers Date Payer Category Payer Private Health Insurance 1955 Unknown [id number] Private Health Insurance [id number] Unknown UMR Social History Date Type Detail Facility Alcohol Use: Alcohol Use: ; O ccasional alcohol use. [employer] [facility] [employer] No Caffeine Use No Caffeine Use [facility] [employer] Tobacco Use: Tobacco Use: ; Never smoker. [employer] Male [facility] [employer] Work Phone: Occasional alcohol use [facility] [employer]. Work Phone: Never smoked tobacco [employer]. Work Phone: Summary Purpose Family History No [...] DATE CREATED AUTHOR AUTHOR'S ORGANIZ ATION 12/25/[address] [facility] DATE CREATED AUTHOR AUTHOR'S ORGANIZ ATION 03/02/2021 [facility] FOR RECORDS PERTAINING TO PATIENTS WHO ARE [...] BE BASED ON THE PRIMARY CLINICAL RECORDS. [facility] [place] [facility]. provides no warranty or guarantee of the accuracy or completeness of information in this document.
[2023-03-28] MEDS: Cefazolin 1 GM/50 ML BAG IV ×2 (15:40→23:23)
[2023-03-28] MEDS: Ensure Surgery 237 ML LIQUID PO (16:20)
--- NOTE | 2023-03-28 17:39 | PCM.PN.HOSP ---
Reason for Visit Reason for Visit: Diagnoses Spinal stenosis, lumbar region without neurogenic claudication (03/28/23) Encounter for other preprocedural examination (03/28/23) Subjective Subjective 67 y/o male with a history of lumbar stenosis, hyperlipidemia, hypertension, hypothyroidism, coronary artery disease status post CABG, GERD, depression who presented to [facility] 03/28/2023 due to lumbar stenosis and underwent L5-S1 fusion 03/28/[address] Patton. Patient tolerated this well and hospitalist contacted for medical management. Patient reports back is a little bit stiff but overall feeling well, would like to take the O2 off if possible and has no other acute complaints. Objective Data Objective Data Vital Signs: Vital Signs Temp Pulse Resp BP Pulse Ox O2 Del Method O2 Flow Rate 96.9 F L 96 18 125/41 H 94 Room Air 2 03/28/23 17:05 03/28/23 17:05 03/28/23 17:05 03/28/23 17:05 03/28/23 17:05 03/28/23 17:05 03/28/23 15:28 Oxygen Flow Rate (L/min) 2 Oxygen Delivery Method Room Air Weight: 107 kg Body Mass Index (BMI) 27.9 Intake & Output: Intake and Output for Last 24 Hours 03/26/23 03/27/23 03/28/23 23:59 23:59 23:59 Intake Total 2618.33 / 2618.33 Output Total 460 / 460 Balance 2158.33 / 2158.33 Lab / Micro Data 03/06/23 08:57 03/06/23 08:57 Labs: Laboratory Results - last 24 hr 03/28/23 12:21: Urine Color Yellow, Urine Clarity Cloudy, Urine pH 5.0, Ur Specific [place] 1.020, Urine Protein 15 H, Urine Glucose (UA) Normal, Urine Ketones Negative, Urine Occult Blood 250 H, Urine Nitrite Negative, Urine Bilirubin Negative, Urine Urobilinogen Normal, Ur Leukocyte Esterase 25 H, Urine RBC 25-50 SEEN, Urine WBC 0-5 SEEN, Ur Squamous Epith Cells 0 SEEN, Uric Acid Crystals 2+, Urine Bacteria 0 SEEN, Urine Mucus 0 SEEN Physical Exam Narrative General: Alert, oriented, no apparent distress HEENT: Atraumatic, normocephalic Eyes: Anicteric, normal conjunctiva, extraocular movements grossly intact Neck: Supple Respiratory: Clear to auscultation bilaterally, normal respiratory effort Cardiovascular: Regular rate and rhythm GI: Soft, nontender, nondistended Extremities: No edema Musculoskeletal: Moving all extremities Neuro: No overt focal neurological deficits Skin: No rashes appreciated Psych: Cooperative Assessment & Plan Assessment/Plan (1) Lumbar stenosis: (2) Hyperlipidemia: (3) Essential hypertension: (4) Atherosclerosis of coronary artery of [place] heart without angina pectoris: (5) Anxiety and depression: PLAN: Plan # Lumbar stenosis -Status post L5-S1 fusion 03/28/[address] Patton -PT/OT -Pain control -Management per primary # Hypertension -Patient's home atenolol and Imdur continued -Postop blood pressure on the low side, will add holding parameters to atenolol #Hx CAD w/ remote bypass -Cont home medications # Hyperlipidemia -Continue statin therapy #Hypothyroidism -Continue Synthroid #GERD -Continue PPI # Depression -On Zoloft and Wellbutrin, continue home medications -Discussed Wellbutrin being somewhat activating in nature patient reports he takes it at bedtime and does not have a hard time sleeping, will keep dosing schedule the same #DVT ppx: Timing at discretion per surgery Tess Bajwa MD Time spent in the patient's overall evaluation,decision-making process, review of diagnostic data, adjustment of management, discussion with other providers, nursing nursing and ancillary staff involved in patient's care documentation, 36 Minutes Charges/Coding Visit Charges Inpatient E&M: 66906 Subs Hosp L2
[2023-03-28] MEDS: Atorvastatin Calcium 40 MG Tablet PO (21:31)
[2023-03-28] MEDS: Atenolol 25 MG Tablet PO (21:32)
[2023-03-28] MEDS: buPROPion (XL) 300 MG TABLET.XL PO (21:32)
[2023-03-29 01:28] VITALS: BP 115/77; PULSE 87; RESP 16; TEMP 36.7; O2SAT 97
[2023-03-29] MEDS: Acetaminophen 500 MG Tablet 1000 MG PO (05:28)
[2023-03-29] MEDS: Levothyroxine 50 MCG Tablet PO (05:28)
[2023-03-29 05:34] VITALS: BP 131/87; PULSE 87; RESP 16; TEMP 36.9; O2SAT 93
[2023-03-29 09:00] VITALS: BP 145/74; PULSE 82; RESP 18; TEMP 36.4; O2SAT 96
[2023-03-29] MEDS: Atenolol 25 MG Tablet PO (09:13)
[2023-03-29] MEDS: Cholecalciferol (VIT D3) 25 MCG TABLET (1,000 UNITS) PO (09:14)
[2023-03-29] MEDS: Isosorbide Mononitrate 60 MG Tablet PO (09:14)
[2023-03-29] MEDS: Sertraline 50 MG Tablet PO (09:14)
[2023-03-29] MEDS: Pantoprazole Sodium 20 MG Tablet PO (09:14)
--- NOTE | 2023-03-29 09:25 | PHA.DC_ITS ---
Pharmacy [facility] has performed discharge medication reconciliation and counseling for this patient. The patient's discharge medication list was reviewed for discrepancies and discrepancies were resolved. The patient was counseled on the following discharge medications and changes in medications for homegoing were reviewed. The Reason for Use, instructions for use, and potential side effects were reviewed for all new medications. The patient's questions regarding all of their medications were answered. 1. Hydrocodone/acetaminophen 5/325 mg PO Q6H The patient was able to verbally demonstrate an understanding of their discharge medications. Medications at Discharge Home Medications atenolol 25 mg tablet 25 mg PO BID blood pressure 10/15/14 isosorbide mononitrate 20 mg tablet 60 mg PO DAILY blood pressure 10/15/14 levothyroxine 75 mcg tablet 50 mcg PO DAILY thyroid 10/15/14 sertraline 25 mg tablet (Zoloft) 50 mg PO DAILY depression 10/15/14 bupropion HCl 300 mg 24 hr tablet, extended release 300 mg PO QHS 02/25/23 cholecalciferol (vitamin D3) 25 mcg (1,000 unit) tablet (Vitamin D3) 25 mcg PO DAILY 02/25/23 omeprazole 20 mg capsule,delayed release 20 mg PO DAILY 02/25/23 rosuvastatin 20 mg tablet 20 mg PO QHS 02/25/23 hydrocodone-acetaminophen 5-325mg 5mg-325mg 1 tab PO Q6H 7 days #28 tabs 03/28/23
--- NOTE | 2023-03-29 09:40 | CASEMGMT ---
Met with patient to complete NOE form. NOE form explained to patient who voiced understanding and signed form. Original form placed in pt?s chart and copy provided to?patient. Sigrid Nieto, Discharge Planning Asst
--- NOTE | 2023-03-29 09:55 | CASEMGMT ---
RN ANSLEY Face to Face with patient for initial transition planning/care coordination assessment. RN CM introduced self and role at [facility]. Patient sitting in chair, alert and oriented. Patient willing to participate in assessment and is able to answer all questions appropriately. Care providers, pharmacy, and demographics verified. Patient wishes to discharge home, denies need for home health at this time. Patient states he has no further needs or concerns at this time. CM to follow for discharge planning needs that may arise. PCP: Sonia Specialists: Pooja Eckert Pharmacy: Bro Insurance: [place] Prescription Benefit: yes Living Will/HPOA: none LNOK: daughter Living Arrangements: Patient lives with but going through a divorce, in a 2 story home with access to bed and bath on first floor. Transportation: self, sister DME/HHC: Patient has rollator at home. No previous HHC or SNF Disposition Plan: Patient to discharge home with family support and follow-up plans in place. Lucila FLORES, RN, CM
--- NOTE | 2023-03-29 16:18 | PN.HOSP_ITS ---
Reason for Visit Reason for Visit: Diagnoses Hyperlipidemia, unspecified (03/28/23) Depression, unspecified (03/28/23) Anxiety disorder, unspecified (03/28/23) Essential (primary) hypertension (03/28/23) Atherosclerotic heart disease of [place] coronary artery without angina pectoris (03/28/23) Spinal stenosis, lumbar region without neurogenic claudication (03/28/23) Encounter for other preprocedural examination (03/28/23) Subjective Subjective No acute events overnight. Patient seen at bedside this morning. Patient was fully dressed and had just gotten out of the restroom when I saw him. Stated he had been told by surgery that he was okay for discharge today. He reported mild lower back discomfort but otherwise had no acute concerns. No other issues at this time. Objective Data Objective Data Vital Signs: Vital Signs Temp Pulse Resp BP Pulse Ox O2 Del Method O2 Flow Rate 97.6 F L 82 18 145/74 H 96 Room Air 2 03/29/23 09:00 03/29/23 09:00 03/29/23 09:00 03/29/23 09:00 03/29/23 09:00 03/29/23 09:10 03/28/23 15:28 Oxygen Flow Rate (L/min) 2 Oxygen Delivery Method Room Air Weight: 107 kg Body Mass Index (BMI) 27.9 Intake & Output: Intake and Output for Last 24 Hours 03/27/23 03/28/23 03/29/23 23:59 23:59 23:59 Intake Total 3691.66 / 3691.66 618.34 / 618.34 Output Total 1190 / 1190 1950 / 1950 Balance 2501.66 / 2501.66 -1331.66 / -1331.66 Lab / Micro Data 03/06/23 08:57 03/06/23 08:57 Radiography Diagnostic Testing: Radiology Impression Lumbar Spine X-Ray 03/28/23 06:30 IMPRESSION: Intraoperative imaging provided for L4-L5 fusion. Electronically Signed: Carlos Enrique Romero MD at 15:09 EST , Physical Exam Const alert, oriented x3, no apparent distress, average body habitus, healthy appearing and well nourished General Appearance: cooperative, comfortable, well kempt and well developed HEENT normocephalic, head/scalp atraumatic, hearing grossly normal bilaterally, nasal mucous membranes and turbinates normal and moist oral mucous membranes Eyes PERRL, EOMs intact bilaterally and conjunctivae normal Neck full ROM, no lymphadenopathy and supple Lymph Lymphatic: no lymphadenopathy noted Chest inspection of chest normal Resp normal respiratory effort, normal air movement, no use of accessory muscles and clear to auscultation bilaterally Cardio regular rate, regular rhythm, no murmurs and peripheral pulses 2+ throughout GI normal to inspection, nondistended, normoactive bowel sounds, soft to palpation, non-tender and non-distended Back/Spine normal ROM Extremity normal to inspection, full ROM and no pedal edema Skin no rashes or lesions noted Psych mental status grossly normal Assessment & Plan Assessment/Plan (1) Lumbar stenosis: PLAN: Plan Patient is a 67-year-old male who presented to [facility] 03/28/[facility]23 for planned lumbar fusion procedure. Medicine consulted postoperatively for medical management. 1. Lumbar stenosis ? Orthopedic surgery primary. S/p L5-S1 fusion 03/28/[address] Patton. Patient tolerated procedure well. PT/OT followed. Patient okay for discharge home per orthopedic recommendations on 03/29. Chronic medical conditions: ? History of CAD with remote bypass, hypertension, hyperlipidemia: Continue home medications. ? Hypothyroidism: Continue home Synthroid. ? GERD: Continue home PPI. ? Depression: Continue home Zoloft and Wellbutrin. Total clinical time spent by myself addressing the patient's medical issues, reviewing all the data, and collaborating with patient's care team: 25 minutes. Charges/Coding Visit Charges Inpatient E&M: 19333 Subs Hosp L1
== END 2023-03-29 10:53 | disposition home or self-care (01) ==
LOC: SDC 13:00 → MS3 13:02
PROVIDERS: Anesthesiology; Admitting Provider Orthopaedic Surgery; PCP Physician Assistant; Referring Provider Orthopaedic Surgery; Visit Provider Orthopaedic Surgery
PROC: 0SG00AJ Fusion of Lumbar Vertebral Joint with Interbody Fusion Device, Posterior Approach, Anterior Column, Open Approach (ICD-10-PCS; CPT 22630; principal; 2023-03-28 07:00)
DX: M48.061 Spinal stenosis, lumbar region without neurogenic claudication (principal); M46.98 Unspecified inflammatory spondylopathy, sacral and sacrococcygeal region; I10 Essential (primary) hypertension; E78.00 Pure hypercholesterolemia, unspecified; M51.36 Other intervertebral disc degeneration, lumbar region; M43.17 Spondylolisthesis, lumbosacral region; M47.817 Spondylosis without myelopathy or radiculopathy, lumbosacral region; F41.9 Anxiety disorder, unspecified; F32.A Depression, unspecified; I25.10 Atherosclerotic heart disease of native coronary artery without angina pectoris; Z79.899 Other long term (current) drug therapy; Z79.890 Hormone replacement therapy; E03.9 Hypothyroidism, unspecified; K21.9 Gastro-esophageal reflux disease without esophagitis; M43.16 Spondylolisthesis, lumbar region; M41.86 Other forms of scoliosis, lumbar region
CPT/HCPCS: 22633; 22853; 63052; 20930; 22842; 20936; 00670; 36415; 71046; 72020; 72100; 76000; 80048; 81001; 84443; 85025; 85610; 85730; 93005; 94668; 96361; 96365; 96366; 97162; 99221; 99252; C1713; J7120; G0378; G0463; J2405

== ENCOUNTER → 2023-07-03 | Outpatient (CLI) | payer OTHER, MEDICARE, SELFPAY ==
--- NOTE | 2023-07-03 15:10 | NEURO ---
NCS and/or EMG Patient Report Ordering Doctor: Braydon Patton DATE OF SERVICE: 07/03/23 Josiah presents with complaints of numbness in the lateral aspect of the right foot and lower leg. He reports having had back surgery in March 2023. Electrodiagnostic findings: Right peroneal motor nerve demonstrates normal distal latency, amplitude and conduction velocity. No significant drop in conduction across the fibular head. Right tibial motor nerve demonstrates normal distal latency and amplitude with normal conduction velocity. Absent right sural, right superficial peroneal and right medial plantar response. Prolonged H reflex bilaterally. Borderline prolonged right tibial and right peroneal F wave. Needle EMG testing was performed in the right lower limb. All muscles tested showed no evidence of denervation with normal motor unit action potentials. Electrodiagnostic impression: This is an abnormal study in the right lower limb. 1. 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 Consider correlation with the left lower limb to evaluate for potential sensory polyneuropathy. 2. There is no electrodiagnostic evidence for peroneal, sciatic or tibial neuropathy. 3. There is no electrodiagnostic evidence for lumbosacral radiculopathy. Multi Select Codes Neurology Neurology Interp Codes: 35681-97 Musc test done w/n test comp (interp) and 75524-63 Nrv cndj test 7-8 studies (interp)
== END | disposition home or self-care (01) ==
LOC: PSN 08:22
PROVIDERS: PCP Physician Assistant; Referring Provider Orthopaedic Surgery; Visit Provider Orthopaedic Surgery
DX: M54.16 Radiculopathy, lumbar region (principal); R20.2 Paresthesia of skin
CPT/HCPCS: 95886; 95910

== ENCOUNTER → 2023-08-05 | Outpatient (CLI) | payer OTHER, MEDICARE, SELFPAY ==
--- NOTE | 2023-08-05 12:37 | VDLE_ITS ---
Reason For Study: Pain RLE RIGHT LEFT GSV is normal. CFV is compressible, spontaneous, phasic, CFV is compressible, spontaneous, phasic, competent, and demonstrates normal competent and demonstrates normal augmentation. augmentation. FV is compressible, spontaneous, phasic, competent and demonstrates normal augmentation. POP V is compressible, spontaneous, phasic, competent and demonstrates normal augmentation. T/P Trunk is compressible. PTV is compressible. RT PerV is compressible. Procedure This is a venous duplex using B-mode, color flow and spectral Doppler. Exam performed in department. A preliminary report was called and/or faxed to Dr. Patton. VL/Venous Duplex US, Unilateral Interpretation Summary There is no evidence of right lower extremity deep vein thrombosis. Right great saphenous vein appears patent and compressible segmentally. Normal flow patterns left common f emoral vein Ordering Physician: Braydon Patton Referring Physician: Michael Scott Performed By: Chapis Celestin, LITO, RVT
== END | disposition home or self-care (01) ==
LOC: CVS 12:37
PROVIDERS: PCP Physician Assistant; Referring Provider Orthopaedic Surgery; Visit Provider Orthopaedic Surgery
DX: M79.661 Pain in right lower leg (principal)
CPT/HCPCS: 93971

== ENCOUNTER 2023-10-08 21:10 | Emergency (ER) | payer OTHER, MEDICARE, SELFPAY ==
[2023-10-08 21:11] VITALS: BP 151/93; PULSE 65; RESP 16; TEMP 36.8; O2SAT 98
[2023-10-08 21:49] LABS: Squamous Epithelial Cells - UA 0 SEEN /hpf (0-5)
[2023-10-08 21:52] LABS: Absolute Lymphocyte Count 1.19 X10^3/uL (0.83-4.51); Basophil# 0.04 X10^3/uL; Basophil% 0.4 % (0-1); Eosinophil# 0.27 X10^3/uL; Eosinophils% 2.9 % (0-5); Hematocrit 42.5 % (40-54); Hemoglobin 14.1 g/dL (13.0-16.5); Lymphocyte # 1.19 X10^3/ul (0.83-4.51); Lymphocyte % 12.9 % (19-41); Mean Corp Hgb Conc 33.2 g/dL (32-36); Mean Corpuscular Hgb 29.2 pg (27.0-32.0); Mean Platelet Vol. 10.4 fl (6.2-12.0); Monocyte# 0.71 X10^3/uL; Monocyte% 7.7 % (0-10); NRBC Flagged by Analyzer 0 % (0-5); Neutrophil # 7.01 X10^3/uL (2.7-7.7); Neutrophil % 75.8 % (47-70); Platelet Count 247 K/mm3 (150-450); RBC Distribution Width CV 13.2 % (11.6-14.6); RBC Distribution Width SD 42.3 fl (35.1-43.9); Red Blood Count 4.83 M/mm3 (4.6-6.2); White Blood Count 9.3 K/mm3 (4.4-11.0)
[2023-10-08 21:57] LABS: Color, Urine Yellow (Yellow); Glucose, Dipstick Normal (Normal); Ketone-Dipstick Negative (Negative); Leukocyte Esterase-Dipstick Negative /ul (Negative); Nitrite-Dipstick Negative (Negative); Occult Blood-Urine 250 /ul (Negative); Protein-Dipstick 30 mg/dl (Negative); Urine Bilirubin Dipstick Negative (Negative); Urine Clarity Sl. Cloudy (Clear); Urine Urobilinogen Normal (Normal)
--- NOTE | 2023-10-08 22:00 | CT_ITS ---
INDICATION: RLQ PAIN EXAMINATION: CT ABDOMEN AND PELVIS WITH CONTRAST - CT Abdomen And Pelvis W/ Contrast Injection TECHNIQUE: Helically acquired images were obtained of the abdomen and pelvis following IV contrast. A radiation dose optimization technique was used for this scan. IV Contrast dosage and agent: 100 cc [id number] Oral contrast: None. COMPARISON: 01/20/2022 FINDINGS: LOWER CHEST: Bibasilar dependent changes. Stable 5 mm pleural-based nodule right lower lobe posteriorly, no further follow-up indicated. Small pneumatocele left lung base. No cardiomegaly or pericardial effusion. Small hiatal hernia. LIVER: Homogeneous. No focal mass. GALLBLADDER AND BILIARY TREE: Calcified gallstones. No gallbladder distension or wall edema. No intra- or extrahepatic biliary ductal dilation. PANCREAS: No focal cystic or solid mass. SPLEEN: Normal size without focal cystic or solid mass. Small accessory splenule. ADRENAL GLANDS: No nodules. KIDNEYS AND URETERS: Bilateral nonobstructing renal calculi. Mild right hydronephrosis with 3 mm calculus in the distal right ureter at the UVJ. PERITONEUM: No ascites or free air. BOWEL: Normal appendix. No stomach or bowel distension. No focal inflammatory change. LYMPH NODES: No enlarged mesenteric or retroperitoneal lymph nodes. VESSELS: Aorta is non-dilated. URINARY BLADDER: Unremarkable. REPRODUCTIVE ORGANS: Prostate hypertrophy. ABDOMINAL WALL: No discrete abdominal or pelvic wall hernia. BONES: No acute or aggressive abnormality. Surgical changes from posterior lumbar fusion with hardware L5-S1. CT/Abdomen/Pelvis W IV Cont ONLY IMPRESSION: Partially obstructing 3 mm calculus in the distal right ureter. Electronically Signed: Fransisco Melo MD at 23:17 EDT ,
[2023-10-08 22:08] LABS: Red Blood Cells-Urine 25-50 SEEN /hpf (0-5); White Blood Cells 0-5 SEEN /hpf (0-5)
--- NOTE | 2023-10-08 22:08 | ED.VIS.GI ---
HPI HPI - GI History of Present Illness Chief Complaint: Abd Pain Narrative Narrative: 68-year-old male past medical history of hypertension, coronary artery disease, hypothyroidism presents with right lower quadrant abdominal pain that began approximately 3 hours ago when he was mowing the lawn. He was on a riding mower. He states he did 2 strips while on his riding mower, and had sudden onset of right lower quadrant pain. He went to the house and had an episode of nausea and vomiting as well. He denies any fevers or chills. No exacerbating or alleviating factors. He describes it more as a dull, achy pain. No prior intra-abdominal surgeries. It does not radiate towards his groin or testicle. He denies any dysuria or hematuria. No diarrhea or problems with bowel movements. While he has had history remotely of kidney stones, he states that this feels different. [facility] Medical History Loss of hearing Alcohol use History of steroid therapy Restless legs Back pain Gastric reflux Non-smoker History of stress test Cardiology follow-up encounter History of heart attack Arthritis Anxiety and depression Hypothyroidism Hyperlipidemia Essential hypertension Atherosclerosis of coronary artery of [place] heart without angina pectoris Home Medications ?Medication ?Instructions ?Recorded ?Last Taken ?Type atenolol 25 mg tablet 25 mg PO BID blood pressure 10/15/14 03/28/23 History levothyroxine 75 mcg tablet 50 mcg PO DAILY thyroid 10/15/14 03/28/23 History bupropion HCl 300 mg 24 hr tablet, 300 mg PO QHS 02/25/23 03/27/23 History extended release cholecalciferol (vitamin D3) 25 25 mcg PO DAILY 02/25/23 03/27/23 History mcg (1,000 unit) tablet (Vitamin D3) omeprazole 20 mg capsule,delayed 20 mg PO DAILY 02/25/23 03/28/23 History release rosuvastatin 20 mg tablet 20 mg PO QHS 02/25/23 Unknown History isosorbide mononitrate 60 mg 60 mg PO DAILY #90 tabs 08/12/23 Unknown Rx tablet,extended release 24 hr bupropion HCl 150 mg 24 hr tablet, 150 mg PO DAILY 10/08/23 Unknown History extended release gabapentin 300 mg capsule 300 mg PO TID 10/08/23 Unknown History ibuprofen 800 mg tablet 800 mg PO Q8H PRN pain #20 tabs 10/08/23 Unknown Rx oxycodone-acetaminophen 5 mg-325 1 tab PO Q6H PRN pain 3 days #12 10/08/23 Unknown Rx mg tablet (Percocet) tabs sertraline 50 mg tablet 50 mg PO DAILY 10/08/23 Unknown History tamsulosin 0.4 mg capsule (Flomax) 0.4 mg PO QHS #10 caps 10/08/23 Unknown Rx Allergy/AdvReac Type Severity Reaction Status Date / Time No Known Allergies Allergy Verified 10/08/23 21:10 Family History Father Arthritis Surgical History Hx of LASIK Hx of colonoscopy History of carpal tunnel surgery of right wrist History of carpal tunnel surgery of left wrist History of release of tendon History of arthroscopy of left knee (~2001) History of tonsillectomy (~1963) History of hernia repair (~2008) History of left heart catheterization (~2000) History of quadruple bypass (~2000) Social History Smoking Status: Never smoker alcohol intake: current substance use type: does not use ROS ROS ED ROS Narrative Constitutional: No fever, no chills. HEENT: No sore throat. No neck pain. No loss of vision. No rhinorrhea. Cardiovascular: No chest pain. No palpitations. No pedal edema. Respiratory: No cough, no shortness of breath. Abdominal: Right lower quadrant abdominal pain. Positive nausea and vomiting. No diarrhea or problems with bowel movements. Genitourinary: No dysuria. No hematuria. Musculoskeletal: No myalgias. No arthralgias. Neurologic: No headaches. No dizziness. No lightheadedness. Skin: No rash. No change in color. Psychiatric: No depression. No anxiety. EXAM Physical Exam Narrative Exam Narrative: Afebrile. Vital signs noted. HEENT: Normocephalic. Atraumatic. PERRL, EOMI. Neck soft and supple. No point tenderness or step off. Cardiovascular: Regular rate and rhythm. No murmurs, rubs, or gallops appreciated. Respiratory: No tachypnea. Lungs clear to auscultation bilaterally. Gastrointestinal: Abdomen soft, mild tenderness right lower quadrant with normoactive bowel sounds. No rebound or guarding. Negative heel strike, no pain with movement of right leg. Neurological: Awake. Alert. Nonfocal, nonlateralizing. Skin: No rash. Normal color. No pallor. Musculoskeletal: No pedal edema. Full range of motion extremities. Const Vital Signs: 10/08/23 21:11 10/08/23 23:10 10/08/23 23:48 Temperature 98.2 F 97.9 F Temperature Source Oral Pulse Rate 65 75 79 Respiratory Rate 16 16 16 Blood Pressure 151/93 H 136/86 H 136/78 H Blood Pressure Mean 112 102 97 Pulse Ox 98 93 99 Oxygen Delivery Method Room Air Room Air MDM MDM MDM Narrative Medical decision making narrative: Differential diagnosis includes but not limited to acute appendicitis versus ureterolithiasis versus diverticulitis. History and physical does not support diverticulitis. RN entered protocols were started. I reviewed his initial laboratory work and he has normal white count 9.3 with hemoglobin 14.1, hematocrit 42.5, platelet count normal at 247. Urinalysis is negative for infection with negative leukocytes and negative nitrites. There is occult blood of 250 on the macro analysis. Patient declined any parenteral narcotic analgesics. Microanalysis does show 25-50 RBCs, and to be more at ureterolithiasis. However, in order to rule out acute appendicitis, CT of the abdomen and pelvis with IV contrast will be obtained. I reviewed his laboratory work and he has a normal white count of 9.3, hemoglobin 14.1, hematocrit 42.5, platelet count normal at 247. Electrolyte panel shows chloride elevated at 109 which I think is nonspecific, BUN of 26 and creatinine normal at 1.17. LFTs are grossly unremarkable. Urinalysis is negative for infection but there are 25-50 RBCs which points more towards ureterolithiasis. As WBCs are 0-5 I do not feel antibiotics are indicated. I reviewed the radiology report of the CT of the abdomen and pelvis and he does have a 3 mm obstructing stone with hydronephrosis at the ureterovesicular junction. Initially, while patient declined medications, he did ask for antinausea medication then for stronger pain medication and he was administered Zofran and morphine respectively. He did have return of pain so he was given a dose of ketorolac 15 mg intravenously. At this point in time, I feel he be discharged to follow-up with urology. He was written prescriptions for Flomax, ibuprofen, and 3 days worth of Percocet. Return instructions were reviewed with the patient. Disposition is discharged home in stable condition. Lab Data Attestation: I reviewed the patient's lab results. Labs: Laboratory Results - last 24 hr 10/08/23 10/08/23 21:41 21:42 WBC 9.3 RBC 4.83 Hgb 14.1 Hct 42.5 MCV 88.0 MCH 29.2 MCHC 33.2 RDW Std Deviation 42.3 RDW Coeff of Olaf 13.2 Plt Count 247 MPV 10.4 Immature Gran % (Auto) 0.300 Neut % (Auto) 75.8 H Lymph % (Auto) 12.9 L [place] % (Auto) 7.7 Eos % (Auto) 2.9 Baso % (Auto) 0.4 Absolute Neuts (auto) 7.0 Absolute Lymphs (auto) 1.19 Nucleated RBC % 0 Sodium 139 Potassium 4.0 Chloride 109 H Carbon Dioxide 24.0 Anion Gap 6 BUN 26 H Creatinine 1.17 Est GFR (MDRD) Af Amer 79 Est GFR (MDRD) Non-Af 66 BUN/Creatinine Ratio 22.2 H Glucose 99 Calcium 9.0 Total Bilirubin 0.50 Direct Bilirubin 0.19 AST 15 ALT 19 Alkaline Phosphatase 79 Total Protein 7.2 Albumin 3.9 Globulin 3.3 Albumin/Globulin Ratio 1.2 Lipase 33 Urine Color Yellow Urine Clarity Sl. Cloudy Urine pH 6.0 Ur Specific [place] 1.020 Urine Protein 30 H Urine Glucose (UA) Normal Urine Ketones Negative Urine Occult Blood 250 H Urine Nitrite Negative Urine Bilirubin Negative Urine Urobilinogen Normal Ur Leukocyte Esterase Negative Urine RBC 25-50 SEEN Urine WBC 0-5 SEEN Ur Squamous Epith Cells 0 SEEN Ur Transition Epith Cell 0-5 SEEN Ur Renal Epithelial Cell 0-5 SEEN Urine Bacteria 1+ Hyaline Casts 0-5 SEEN Urine Mucus 1+ Urine Yeast 4+ Radiography Diagnostic Testing: Clinical Impression(s) from Imaging Studies Abdomen/Pelvis CT 10/08/23 22:00 IMPRESSION: Partially obstructing 3 mm calculus in the distal right ureter. Electronically Signed: Fransisco Melo MD at 23:17 EDT , Discharge Plan Triage Chief Complaint: Abd Pain ED Provider: Yuri Strong Dx/Rx/DC Orders Clinical Impression: Ureterolithiasis, Acute right flank pain Instructions: ED Kidney Stone with Pain Prescriptions: New ibuprofen 800 mg tablet 800 mg PO Q8H PRN (Reason: pain) Qty: 20 0RF tamsulosin [Flomax] 0.4 mg capsule 0.4 mg PO QHS Qty: 10 0RF oxycodone-acetaminophen [Percocet] 5-325 mg tablet 1 tab PO Q6H PRN (Reason: pain) 3 Days Qty: 12 0RF No Action atenolol 25 MG tablet 25 mg PO BID levothyroxine 75 MCG tablet 50 mcg PO DAILY omeprazole 20 mg capsule,delayed release(DR/EC) 20 mg PO DAILY rosuvastatin 20 mg tablet 20 mg PO QHS bupropion HCl 300 mg tablet extended release 24 hr 300 mg PO QHS cholecalciferol (vitamin D3) [Vitamin D3] 25 mcg (1,000 unit) tablet 25 mcg PO DAILY gabapentin 300 mg capsule 300 mg PO TID sertraline 50 mg tablet 50 mg PO DAILY bupropion HCl 150 mg tablet extended release 24 hr 150 mg PO DAILY isosorbide mononitrate 60 mg tablet extended release 24 hr 60 mg PO DAILY Qty: 90 3RF Primary Care Provider: Michael Scott Referrals: Ozzie Gibbs MD [Med Staff - Active Staff] - 3-5 Days Michael Scott PA [Primary Care Provider] - Activity Restrictions/Additional Instructions: Follow-up with urology within the next week. Return with fever, intractable pain, inability to take your medications, new or worsening symptoms. Print Language: Divehi Disposition Disposition: Home, Self Care Discharge Date/Time: 10/08/23 23:49
[2023-10-08 22:09] LABS: Yeast-Urine 4+ /hpf (None Seen)
[2023-10-08 22:10] LABS: Bacteria 1+ /hpf (None Seen); Hyaline Cast 0-5 SEEN /lpf (0-5); Mucous, Urine 1+ /hpf (<or=2+); Renal Epithelial Cells 0-5 SEEN /hpf (0-5); Transitional Epithelial - Ur 0-5 SEEN /hpf (0-5)
[2023-10-08 22:22] LABS: ALB/GLOB Ratio 1.2 RATIO (0.9-2.4); AST(SGOT) 15 U/L (15-37); Alanine Aminotransfer ALT/SGPT 19 U/L (16-61); Albumin, Serum 3.9 g/dL (3.2-5.0); Alkaline Phosphatase 79 U/L (45-117); Anion Gap 6 (5-15); BUN 26 mg/dL (7-18); BUN/Creat Ratio 22.2 RATIO (10-20); Bilirubin, Direct 0.19 mg/dL (0.00-0.30); Chloride 109 mmol/L (98-107); Creatinine, Serum 1.17 mg/dL (0.70-1.30); EST Glomerular Filtration Rate 66 mL/min (>60); Est Glom Filt Rate - Afr Amer 79 mL/min (>60); Globulin 3.3 g/dL (2.2-4.2); Glucose 99 mg/dL (74-106); Lipase 33 U/L (13-75); Protein, Total 7.2 g/dL (6.4-8.2); Sodium Level 139 mmol/L (136-145)
[2023-10-08] MEDS: Ondansetron 4 MG/2 ML Vial IV (22:57)
[2023-10-08] MEDS: Morphine 4 MG/ML Syringe IV (23:09)
[2023-10-08 23:10] VITALS: BP 136/86; PULSE 75; RESP 16; O2SAT 93
[2023-10-08] MEDS: Ketorolac 15 MG/ML Vial IV (23:44)
[2023-10-08 23:48] VITALS: BP 136/78; PULSE 79; RESP 16; TEMP 36.6; O2SAT 99
== END 2023-10-08 23:49 | disposition home or self-care (01) ==
PROVIDERS: Emergency Provider Emergency Medicine; PCP Physician Assistant; Visit Provider Emergency Medicine
DX: N13.2 Hydronephrosis with renal and ureteral calculous obstruction (principal); I25.10 Atherosclerotic heart disease of native coronary artery without angina pectoris; I10 Essential (primary) hypertension; E78.5 Hyperlipidemia, unspecified; E03.9 Hypothyroidism, unspecified; K21.9 Gastro-esophageal reflux disease without esophagitis; F41.9 Anxiety disorder, unspecified; F32.A Depression, unspecified; Z79.899 Other long term (current) drug therapy; R10.31 Right lower quadrant pain
CPT/HCPCS: 74177; 80053; 80076; 81001; 83690; 85025; 96374; 96375; 96376; 99283; Q9967; A4216; J2405

== ENCOUNTER → 2024-02-21 | Outpatient (CLI) | payer MEDICARE, OTHER, SELFPAY ==
--- NOTE | 2024-02-21 15:59 | MRI_ITS ---
HISTORY: Low back pain x 18 months, prior surgery. TECHNIQUE: Multiplanar and multisequence MR images of the lumbar spine were obtained before and after the intravenous administration of 20 mL Clariscan. 254 images. COMPARISON: XR 02/07/2024, CT 10/08/2023. FINDINGS: VERTEBRAE: Vertebral body heights maintained. Degenerative endplate bone marrow changes at multiple levels, particularly L2-3 and L5-S1. Bilateral L5 spondylolysis. Artifact from L5-S1 posterior spinal fusion hardware. ALIGNMENT: Chronic 6 mm anterolisthesis of L5-S1. SPINAL CANAL: Normal morphology and position of the conus medullaris at L1. No gross epidural collection or enhancing intradural extramedullary mass. INTERVERTEBRAL DISCS: T12-L1: Mild disc bulge without significant central canal stenosis or foraminal narrowing based on the sagittal images. L1-2: Mild posterior disc bulge osteophyte complex with facet arthropathy superimposed on a developmentally narrow spinal canal resulting in mild central canal stenosis and right greater than left foraminal narrowing. L2-3: Right paracentral disc protrusion with facet arthropathy superimposed on a developmentally narrow spinal canal resulting in right L3 nerve root impingement, moderate-severe central canal stenosis, severe right foraminal narrowing with right L2 nerve root abutment, and moderate left foraminal narrowing. L3-4: Mild posterior disc bulge osteophyte complex with facet arthropathy superimposed on a developmentally narrow spinal canal resulting in severe central canal stenosis and mild-moderate bilateral foraminal narrowing with bilateral L3 nerve root abutment. L4-5: Mild posterior disc bulge osteophyte complex with facet arthropathy and L5 decompressive laminectomy. No significant central canal stenosis. Mild right and moderate left foraminal narrowing with left L4 nerve root abutment. L5-S1: Interbody fusion material and decompressive laminectomy. Residual degenerative change without significant central canal stenosis. Mild left and moderate right foraminal narrowing with right L5 nerve root impingement. SOFT TISSUES: Posterior subcutaneous edema with a 3.7 cm long fluid collection again seen. Right renal cyst again seen. MRI/Spine Lumbar W/WO Contrast IMPRESSION: Multilevel degenerative disc disease. L2-3 right paracentral disc protrusion resulting in moderate-severe spinal canal stenosis and bilateral foraminal narrowing with right nerve root impingement. L3-4 degenerative disc disease resulting in severe spinal canal stenosis and mild-moderate bilateral foraminal narrowing with bilateral nerve root abutment. Postoperative changes of L5-S1 with chronic posterior postoperative fluid collection. L5 spondylolysis with chronic grade 1 spondylolisthesis. Electronically Signed: Ana Laura Hines MD at 9:28 EST ,
[2024-02-21 17:02] LABS: CREATININE FINGERSTICK < 1.0 mg/dL (0.70-1.30); EGFR FINGERSTICK > 60.0000 mL/min (>60)
== END | disposition home or self-care (01) ==
LOC: MRI 15:51
PROVIDERS: PCP Physician Assistant; Referring Provider Orthopaedic Surgery Orthopaedic Surgery of the Spine; Visit Provider Orthopaedic Surgery Orthopaedic Surgery of the Spine
DX: M54.16 Radiculopathy, lumbar region (principal); M48.062 Spinal stenosis, lumbar region with neurogenic claudication; Z98.1 Arthrodesis status
CPT/HCPCS: 72158

== ENCOUNTER 2024-10-16 12:45 | Day surgery (SDC) | payer OTHER, MEDICARE, SELFPAY ==
--- NOTE | 2024-10-14 14:42 | PAT.ANE_ITS ---
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 When Was Last Pacemaker Check QUESTION #4 FULL TEXT: You/Your Family Experience fever (hyperthermia) with Anesthesia Last Oral Intake Last Oral intake: Last Oral Intake NPO since Meds taken in AM with sips of water? Meds patient instructed to take am of surgery PONV PONV - furniture rental consultant: PONV - furniture rental consultant Female No 10/14/24 14:36 HX of Motion Sickness No 10/14/24 14:36 HX of N/V After Surgery No 10/14/24 14:36 Non-Smoker Yes 10/14/24 14:36 Duration of Surgery greater No 10/14/24 14:36 than 60 minutes Number of Risk Factors 1 10/14/24 14:36 PONV Score Low Risk 10/14/24 14:36 Height & Weight Height & Weight: Anesthesia: Height & Weight Height 6 ft 5 in 02/07/24 13:16 Respiratory Assessment Respiratory Assessment - furniture rental consultant: Respiratory Tract Infection Hx - furniture rental consultant Hx Respiratory Tract Infection No 10/14/24 14:36 STOP Sleep Apnea STOP Sleep Apnea - furniture rental consultant: STOP Sleep Apnea - furniture rental consultant Hx Hypertension Yes: CONTROLLED WITH MED 10/14/24 14:36 Hx Sleep Apnea No 10/14/24 14:36 CPAP No 10/14/24 14:36 BIPAP No 10/14/24 14:36 Do you snore loudly (louder Yes 10/14/24 14:36 than talking or can be heard Do you often feel tired/ No 10/14/24 14:36 fatigued/ sleepy during daytime? Has anyone observed you stop No 10/14/24 14:36 breathing during sleep? STOP Results Positive 10/14/24 14:36 QUESTION #5 FULL TEXT : Do you snore loudly (louder than talking or can be heard through closed doors)? 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 Specify any problems Hx of Preganancy in last 3 N/A 10/14/24 14:36 Months Nurse Filling Out Transfusion VCHRISTIN 10/14/24 14:36 & Questions: Date: 10/14/24 10/14/24 14:36 Time: 14:37 10/14/24 14:36 Patient unable to answer at this time (ie. confused, unrespo /Reproduction History /Reproductive History - furniture rental consultant: /Reproductive Hx- furniture rental consultant Hx Now No 10/14/24 14:36 Gestational Age (in weeks): EDC: Hx Hx Para Hx Section SAB No 10/14/24 14:36 PFSH Medical History (Updated 10/14/24 @ 14:35 by Doreen Bedolla) Cancer Thyroid disease Kidney stones History of echocardiogram Loss of hearing Alcohol use History of steroid therapy Restless legs Back pain Gastric reflux Non-smoker History of stress test Cardiology follow-up encounter History of heart attack Arthritis Anxiety and depression Hypothyroidism Hyperlipidemia Essential hypertension Atherosclerosis of coronary artery of [place] heart without angina pectoris Home Medications ?Medication ?Instructions ?Recorded ?Last Taken ?Type atenolol 25 mg tablet 25 mg PO BID blood pressure 10/15/14 03/28/23 History levothyroxine 75 mcg tablet 50 mcg PO DAILY thyroid 03/28/23 History cholecalciferol (vitamin D3) 25 25 mcg PO DAILY 03/27/23 History mcg (1,000 unit) tablet (Vitamin D3) rosuvastatin 20 mg tablet 20 mg PO QHS 02/25/23 Unknow n History isosorbide mononitrate 60 mg 60 mg PO DAILY #90 tabs 0 08/12/23 Unknown Rx tablet,extended release 24 hr bupropion HCl 150 mg 24 hr tablet, 150 mg PO DAILY Unknown History extended release ibuprofen 800 mg tablet 800 mg PO Q8H PRN pain #20 t abs 10/08/23 Unknown Rx sertraline 50 mg tablet 100 mg PO DAILY 10/08/23 Unk nown History aspirin 81 mg capsule 81 mg PO DAILY 10/14/24 08/08/12 History Allergy/AdvReac Type Severity Reaction Status Date / Time No Known Allergies Allergy Verified 10/14/24 14:20 Family History Father Arthritis Surgical History (Updated 10/14/24 @ 14:35 by Doreen Bedolla) History of lumbar fusion Hx of LASIK Hx of colonoscopy History of carpal tunnel surgery of right wrist History of carpal tunnel surgery of left wrist History of release of tendon History of arthroscopy of left knee (~2001) History of tonsillectomy (~1963) History of hernia repair (~2008) History of left heart catheterization (~2000) History of quadruple bypass (~2000) Social History Smoking Status: Never smoker alcohol intake: current substance use type: does not use Audit: Pertinent Findings Pertinent Findings EKG Perinent findings: Echocardiogram performed 03/06/2023: Normal sinus rhythm normal EKG. Stress test pertinent findings: Stress test performed to 03/25/23 Impression: 1. Pharmacologic (Regadenoson) evaluation 2. Peak pharmacologic ECG with no ischemic changes. 3. There were no cardiac dysrhythmias pretest, during pharmacologic infusion, or recovery. 5. Rest and stress SPECT Cardiolite nuclear imaging demonstrate relative uniform tracer uptake and myocardial perfusion appearing within normal limits. 6. The gated Cardiolite study reports an LVEF of 64%. Echo (EF%) pertinent findings: Echocardiogram performed to 03/25/23 Interpretation Summary The left ventricular ejection fraction is 60 %. The left atrium is severely enlarged. Mild mitral valve thickening. Redundant chords. Aortic sclerosis, no stenosis. Suspect atherosclerosis of the aortic arch Heart catheterization pertinent findings: Cardiology note from 03/06/2023 from this note the geospatial scientist recommended a echocardiogram and stress test which was performed as above. Recommendation Anesthesia Recommendation Anesthesia recommendation: OPTIMIZED for anesthesia
[2024-10-16] VITALS (9 sets, daily range): BP systolic 126–154; BP diastolic 82–103; PULSE 73–86; RESP 14–18; TEMP 36.4–36.6; O2SAT 95–98; BMI 27.2
--- NOTE | 2024-10-16 12:55 | RAD_ITS ---
PROCEDURE: ABDOMEN SINGLE VIEW 10/16/2024 REASON FOR EXAM: PRE-OP TECHNIQUE: ABDOMEN SINGLE VIEW COMPARISON: None FINDINGS: Bowel gas: Large amount of fecal material is seen throughout the colon. Calcifications: No suspicious calcifications. Bones: There are degenerative changes of the spine. Prior laminectomy and fusion at the L5-S1 level. Degenerative changes of the sacroiliac joints in the symphysis pubis. Other: RAD/Abdomen Single View IMPRESSION: Large amount of fecal material is seen in the colon. No abnormal calcific density seen. Reading Location: [id number]
[2024-10-16] MEDS: Lactated Ringers 1,000 ML 15 ML IV (13:44)
--- NOTE | 2024-10-16 13:49 | PCM.PRE.AN2 ---
ASA Classification* ASA Classification ASA Classification: 2 Assessment & Plan Anesthesia* Anesthesia Assessment Anesthesia Assessment: Discussed sedation and/or anesthesia options, risks, benefits, and alternatives with patient/parents/legal guardian/POA. Questions invited. The patient/parents/legal guardian/POA seems to understand and agrees to proceed with anesthesia plan. Reviewed the physical assessment, medical history, allergy history and patient home medications list prior to surgery/procedure/anesthetic and documented any changes. Performed airway and anesthesia risk assessments. Anesthesia Type Anesthesia Type: General Anesthesia Focused Assessment* Temperature: 98 F Pulse Rate: 73 Blood Pressure: 126/82 Respiratory Rate: 16 Pulse Ox: 97 Airway Assessment Mouth opens: >3 cm Mallampati Score: II Labs Anesthesia Preop lab: CBC WBC 9.3 K/mm3 (4.4-11.0) 10/08/23 21:42 10/08/23 RBC 4.83 M/mm3 (4.6-6.2) 10/08/23 21:42 10/08/23 Hgb 14.1 g/dL (13.0-16.5) 10/08/23 21:42 10/08/23 Hct 42.5 % (40-54) 10/08/23 21:42 10/08/23 Plt Count 247 K/mm3 (150-450) 10/08/23 21:42 10/08/23 CHEMISTRY Potassium 4.0 mmol/L (3.5-5.1) 10/08/23 21:42 10/08/23 Sodium 139 mmol/L (136-145) 10/08/23 21:42 10/08/23 BUN 26 mg/dL (7-18) H 10/08/23 21:42 10/08/23 Creatinine 1.17 mg/dL (0.70-1.30) 10/08/23 21:42 10/08/23 Glucose 99 mg/dL (74-106) 10/08/23 21:42 10/08/23 TSH 2.72 uIU/mL (0.358-3.74) 03/06/23 08:57 03/06/23 COAG PT 14.7 SECONDS (11.7-14.9) 03/06/23 08:57 03/06/23 Pre-Assessment Diagnosis/Proposed Procedure Planned Operative Procedure(s): (L) ESWL,Cystocopy Insertion Stent Anesthesia History Anesthesia History - mechanic chief: Anesthesia History - mechanic chief Hx Hospitalization No 10/14/24 14:36 Any Problems With Anesthesia No 10/14/24 14:36 Cholinesterase deficiency No 10/14/24 14:36 You/Your Family Experience No 10/14/24 14:36 fever (hyperthermia) with Relationship Recent Exposure to Contagious No 10/16/24 13:32 Disease Does patient have nerve No 10/14/24 14:36 stimulator Patient instructed to have device shut off --Does patient have Pacemaker No 10/16/24 13:32 or ICD? When Was Last Pacemaker Check QUESTION #4 FULL TEXT: You/Your Family Experience fever (hyperthermia) with Anesthesia Last Oral Intake Last Oral intake: Last Oral Intake NPO since 22:00 10/16/24 13:32 Meds taken in AM with sips of Yes 10/16/24 13:32 water? Meds patient instructed to take am of surgery PONV PONV - mechanic chief: PONV - mechanic chief Female No 10/14/24 14:36 HX of Motion Sickness No 10/14/24 14:36 HX of N/V After Surgery No 10/14/24 14:36 Non-Smoker Yes 10/14/24 14:36 Duration of Surgery greater No 10/14/24 14:36 than 60 minutes Number of Risk Factors 1 10/14/24 14:36 PONV Score Low Risk 10/14/24 14:36 Height & Weight Height & Weight: Anesthesia: Height & Weight Height 6 ft 5 in 10/16/24 13:32 Weight: 104.3 kg 10/16/24 13:32 Body Mass Index (BMI) 27.2 10/16/24 13:32 Respiratory Assessment Respiratory Assessment - mechanic chief: Respiratory Tract Infection Hx - mechanic chief Hx Respiratory Tract Infection No 10/14/24 14:36 STOP Sleep Apnea STOP Sleep Apnea - mechanic chief: STOP Sleep Apnea - mechanic chief Hx Hypertension Yes: CONTROLLED WITH MED 10/14/24 14:36 Hx Sleep Apnea No 10/14/24 14:36 CPAP No 10/14/24 14:36 BIPAP No 10/14/24 14:36 Do you snore loudly (louder Yes 10/14/24 14:36 than talking or can be heard Do you often feel tired/ No 10/14/24 14:36 fatigued/ sleepy during daytime? Has anyone observed you stop No 10/14/24 14:36 breathing during sleep? STOP Results Positive 10/14/24 14:36 QUESTION #5 FULL TEXT : Do you snore loudly (louder than talking or can be heard through closed doors)? Tobacco Use History Tobacco Use History - mechanic chief: Tobacco Use History - mechanic chief Tobacco Use Smoking Status Never smoker 10/14/24 14:36 Hx Tobacco Use No 10/14/24 14:36 Years Smoking Packs Smoked per Day Smoking Cessation Date was within the last 15 years Hx Smoking Cessation Date Hx Smoking Cessation Counseling Hematologic Medial History Hematologic Hx - mechanic chief: Hematologic Medical Hx - fruit tester Hx of Blood Transfusion No 10/14/24 14:36 Hx of Transfusion in last 3 No 10/14/24 14:36 Months Date of Last Transfusion (if within last 3 months) Ever experience any problems No 10/14/24 14:36 with transfusion(s)? Specify any problems Hx of Preganancy in last 3 N/A 10/14/24 14:36 Months Nurse Filling Out Transfusion VCHRISTIN 10/14/24 14:36 & Questions: Date: 10/14/24 10/14/24 14:36 Time: 14:37 10/14/24 14:36 Patient unable to answer at this time (ie. confused, unrespo /Reproduction History /Reproductive History - mechanic chief: /Reproductive Hx- mechanic chief Hx Now No 10/14/24 14:36 Gestational Age (in weeks): EDC: Hx Hx Para Hx Section SAB No 10/14/24 14:36 Active Medications Active Medications: Current Medications Generic Name Dose Route Start Last Admin Trade Name Freq PRN Reason Stop Dose Admin Cefazolin Sodium 2 gm/ Sodium 110 mls @ 200 mls/hr 10/16/24 15:30 Chloride IV 10/16/24 16:02 INTRAOP ONE Lactated Ringer's 1,000 mls @ 15 mls/hr 10/16/24 13:30 10/16/24 13:44 IV 15 mls/hr .Q48H JAVAD Administration PFSH Medical History Cancer Thyroid disease Kidney stones History of echocardiogram Loss of hearing Alcohol use History of steroid therapy Restless legs Back pain Gastric reflux Non-smoker History of stress test Cardiology follow-up encounter History of heart attack Arthritis Anxiety and depression Hypothyroidism Hyperlipidemia Essential hypertension Atherosclerosis of coronary artery of [place] heart without angina pectoris Home Medications ?Medication ?Instructions ?Recorded ?Last Taken ?Type atenolol 25 mg tablet 25 mg PO BID blood pressure 10/15/14 10/16/24 07:30 History levothyroxine 75 mcg tablet 50 mcg PO DAILY thyroid 10/15/14 10/16/24 07:30 History cholecalciferol (vitamin D3) 25 25 mcg PO DAILY 02/25/23 03/27/23 History mcg (1,000 unit) tablet (Vitamin D3) rosuvastatin 20 mg tablet 20 mg PO QHS 02/25/23 Unknown History isosorbide mononitrate 60 mg 60 mg PO DAILY #90 tabs 08/12/23 10/16/24 07:30 Rx tablet,extended release 24 hr bupropion HCl 150 mg 24 hr tablet, 150 mg PO DAILY 10/08/23 Unknown History extended release ibuprofen 800 mg tablet 800 mg PO Q8H PRN pain #20 tabs 10/08/23 Unknown Rx sertraline 50 mg tablet 100 mg PO DAILY 10/08/23 Unknown History aspirin 81 mg capsule 81 mg PO DAILY 10/14/24 10/13/24 History Allergy/AdvReac Type Severity Reaction Status Date / Time No Known Allergies Allergy Verified 10/16/24 13:31 Family History Father Arthritis Surgical History History of lumbar fusion Hx of LASIK Hx of colonoscopy History of carpal tunnel surgery of right wrist History of carpal tunnel surgery of left wrist History of release of tendon History of arthroscopy of left knee (~2001) History of tonsillectomy (~1963) History of hernia repair (~2008) History of left heart catheterization (~2000) History of quadruple bypass (~2000) Social History Smoking Status: Never smoker alcohol intake: current substance use type: does not use Review of Systems (Anesthesia) ROS Narrative System reviewed and no additional complaints, except as documented.
--- NOTE | 2024-10-16 14:30 | CT_ITS ---
PROCEDURE: ABDOMEN/PELVIS WITHOUT CONT 10/16/2024 REASON FOR EXAM: STONE PROTOCOL TECHNIQUE: Procedure Code: CTABDPEL Modality: CT Procedure: ABDOMEN/PELVIS WITHOUT CONT Noncontrast technique limits evaluation of the abdominal and pelvic viscera. Coronal and Sagittal reconstruction series were provided. One or more dose reduction techniques were used (e.g., Automated exposure control, adjustment of the mA and/or kV according to patient size, use of iterative reconstruction technique). RADIATION DOSE SUMMARY: CTDlvol: 12.29 mGy DLP: 697.06 mGycm COMPARISON: Prior study dated October 08, 2023. FINDINGS: Lung bases: Chronic scarring in the lung bases with left bulla. Prior CABG. Coronary artery calcification. Liver: Normal size. No obvious mass. Gallbladder: Small gallstones. Spleen: Normal size. Pancreas: Normal size. No surrounding inflammation. Adrenals: Unremarkable Kidneys: Tiny bilateral nonobstructive renal calculi. The largest is in the lower pole of the left kidney and measures 5 mm. There is a 4.2 cm cyst in the anterior midportion of the right kidney. There is also evidence of a 1.7 cm cyst in the superior pole of the right kidney. These are unchanged. No evidence of hydronephrosis. Bladder: Distended urinary bladder. Heterogeneous enlargement of the prostate. The prostate measures 5 cm by 6.2 cm. This causes indentation of the bladder base. Central prostatic calcification. Bowel: Fecal material is seen throughout the colon. Appendix: The appendix is not identified. There is no inflammatory process identified in the right lower quadrant to suggest appendicitis. Lymph nodes: Unremarkable. Vasculature: Mild diffuse atherosclerotic calcifications are noted. Peritoneum / Retroperitoneum: Unremarkable Bones: Degenerative changes of the spine. Prior fusion at the L5-S1 level. CT/Abdomen/Pelvis without Cont IMPRESSION: Stable small bilateral intra renal calculi. Stable right renal cysts. Small gallstones. Chronic scarring at the lung bases. Reading Location: [id number]
[2024-10-16] MEDS: Lidocaine 1% (5 ml sdv) 5 ML Vial IV (15:10)
[2024-10-16] MEDS: Cefazolin 1 GM/5 ML Vial 2 GM IV (15:12)
--- NOTE | 2024-10-16 16:10 | PCM.DC ---
Discharge Instructions DC O2, CPAP, BIPAP needs Home O2 Discharge instructions: No Dressing / Incision Discharge Activity: Return to Normal Activity and May Not Drive (while taking narcotic pain medications.) Dressing / Incision Call your doctor if you observe: Fever of 101 or Higher Follow Up Care Please Follow Up With: Ozzie Gibbs MD When: Call [phone] for an appointment Test Results: Test results from this visit will be discussed in further detail at your follow-up appointment, if applicable. Discharge Plan Admission Primary Reason for Your Visit: treat kidney stone Attending Provider: Ozzie Gibbs Primary Care Provider: Michael Scott Instructions Print Language: Jordanian Discharge Orders/Prescriptions Prescriptions: New ciprofloxacin HCl [Cipro] 500 mg tablet 500 mg PO BID Qty: 10 0RF tamsulosin [Flomax] 0.4 mg capsule 0.4 mg PO DAILY Qty: 10 0RF phenazopyridine [Pyridium] 100 mg tablet 100 mg PO BID 7 Days Qty: 14 0RF oxycodone 5 mg tablet 5 mg PO Q6H PRN (Reason: pain) 3 Days Qty: 14 0RF Continued atenolol 25 MG tablet 25 mg PO BID levothyroxine 75 MCG tablet 50 mcg PO DAILY rosuvastatin 20 mg tablet 20 mg PO QHS cholecalciferol (vitamin D3) [Vitamin D3] 25 mcg (1,000 unit) tablet 25 mcg PO DAILY sertraline 50 mg tablet 100 mg PO DAILY bupropion HCl 150 mg tablet extended release 24 hr 150 mg PO DAILY ibuprofen 800 mg tablet 800 mg PO Q8H PRN (Reason: pain) Qty: 20 0RF isosorbide mononitrate 60 mg tablet extended release 24 hr 60 mg PO DAILY Qty: 90 3RF Held aspirin 81 mg capsule 81 mg PO DAILY Hold Instructions: Resume on 10/23/24. Referrals / Follow Up: Ozzie Gibbs MD [Med Staff - Active Staff] - Michael Scott PA [Primary Care Provider] - Disposition Disposition (needs filled in before D/C Order can be placed): Home, Self Care
--- NOTE | 2024-10-16 16:11 | PCM.OPRPT ---
Operative Report (Standard) Operative Information Date of Procedure: 10/16/24 Pre-Operative Diagnosis: Left kidney stone Post-Operative Diagnosis: Same Surgery/Procedure Performed: Cystoscopy left stent placement left extracorporeal shock lithotripsy gis software developer: No Type of Anesthesia: General RN Documented Start/Stop Times: Operation Date: 10/16/24 15:30 Case Time Into Pre-Op 10/16/24 13:16 Out of Pre-Op 10/16/24 15:02 Anesthesia Start 10/16/24 15:06 Into Room 10/16/24 15:06 Procedure Start 10/16/24 15:23 Procedure End 10/16/24 16:07 Procedure Start Time: 15:23 Procedure Stop Time: 16:11 Select all DRAINS/GRAFTS/IMPLANTS that apply: Drains Drain details: 6 [place] by 26 cm stent on the left Estimated Blood Loss: None Specimen collected: No Description of surgery: Patient was taken back to the operating room after smooth duction of anesthesia preop area we got a CAT scan to confirm the location of stone in the renal pelvis under fluoroscopy we used fluoroscopy to move around and we could able to see the stone with a lot of bowel gas and we made quite difficult so then we prepped and draped the patient you sterile fashion into the bladder with a 21 [place] rigid cystourethroscope cannulated the left ureteral orifice with a Glidewire advanced a wire up into the kidney once the wire was of the kidney and then we can see the renal pelvis and we then identified the stone and then placed a stent on the left side we then put the stone the F2 focal point of the lithotripter and proceeded with shockwave lithotripsy after about 1500 shockwaves the stone was not visible anymore so we increased the rate lowered the power and gave a total of thousand 3000 shockwaves to the stone in the left renal pelvis left a stent in place patient ascetic was reversed after successful treatment of the stone patient was taken back to the PACU follow-up next week for cystoscopy stent removal in the office. Surgical Findings: Stone was very hard to see but was treated with shock lithotripsy gypsy after stent was placed we could visibly see the stone and broke up completely Complications Complications: No Admit VTE Documentation VTE Present on Admission: No VTE Mechan Device Prophylaxis: SCD's VTE Pharm Prophylaxis ordered?: No
[2024-10-16] MEDS: fentaNYL 100 MCG/2 ML Ampul IV (16:14)
--- NOTE | 2024-10-16 16:21 | PCM.POST.ANE ---
Anesthesia: Postop Eval I Current Vital Signs Temperature: 97.5 F Pulse Rate: 85 Blood Pressure: 149/93 Respiratory Rate: 16 Pulse Ox: 95 Oxygen Delivery Method: Room Air Assessment Airway patent: Yes Spontaneous unlabored respirations: Yes Mental status: Awake and Calm nausea: No Vomiting: No Anesthesia Complication: No Fluid Hydration Crystalloid volume administer (ml): 900 Total IV fluid infused: 900 Progress Note Anesthesia document: Postop Eval 1 completed: Yes
--- NOTE | 2024-10-16 16:29 | POSTOPAN2_ITS ---
Anesthesia Postop Eval I Sum Postop Eval Completion status Anesthesia document: Postop Eval 1 completed: Yes Anesthesia Postop Eval I Summary Anesthesia Postop Eval I Summary: Anesthesia Postop Eval I: Assessment Summary Airway patent Yes 10/16/24 16:25 LAUNDRY OR DRY CLEANERS COUNTER CLERK.JBOR Spontaneous unlabored Yes 10/16/24 16:25 LAUNDRY OR DRY CLEANERS COUNTER CLERK.JBOR respirations Mental status Awake,Calm 10/16/24 16:25 LAUNDRY OR DRY CLEANERS COUNTER CLERK.JBOR nausea No 10/16/24 16:25 LAUNDRY OR DRY CLEANERS COUNTER CLERK.JBOR Vomiting No 10/16/24 16:25 LAUNDRY OR DRY CLEANERS COUNTER CLERK.JBOR Anesthesia Postop Eval I: Fluid Summary Crystalloid volume administer 900 10/16/24 16:25 LAUNDRY OR DRY CLEANERS COUNTER CLERK.JBOR (ml) Colloids volume administered ( ml) Blood Product volume administered (ml) Total IV fluid infused 900 10/16/24 16:25 LAUNDRY OR DRY CLEANERS COUNTER CLERK.JBOR Anesthesia Postop Eval I: Summary Notes Anesthesia Complication No 10/16/24 16:25 LAUNDRY OR DRY CLEANERS COUNTER CLERK.JBOR Anesthesia Complication Comment: Post-operative progress note Anesthesia: Postop Eval II Evaluation Mental status: Awake Pain Level: 0 nausea: No Vomiting: No
--- NOTE | 2024-10-16 16:29 | PCM.POSTANE2 ---
Anesthesia Postop Eval I Sum Postop Eval Completion status Anesthesia document: Postop Eval 1 completed: Yes Anesthesia Postop Eval I Summary Anesthesia Postop Eval I Summary: Anesthesia Postop Eval I: Assessment Summary Airway patent Yes 10/16/24 16:25 RETENTION SPECIALIST.JBOR Spontaneous unlabored Yes 10/16/24 16:25 RETENTION SPECIALIST.JBOR respirations Mental status Awake,Calm 10/16/24 16:25 RETENTION SPECIALIST.JBOR nausea No 10/16/24 16:25 RETENTION SPECIALIST.JBOR Vomiting No 10/16/24 16:25 RETENTION SPECIALIST.JBOR Anesthesia Postop Eval I: Fluid Summary Crystalloid volume administer 900 10/16/24 16:25 RETENTION SPECIALIST.JBOR (ml) Colloids volume administered ( ml) Blood Product volume administered (ml) Total IV fluid infused 900 10/16/24 16:25 RETENTION SPECIALIST.JBOR Anesthesia Postop Eval I: Summary Notes Anesthesia Complication No 10/16/24 16:25 RETENTION SPECIALIST.JBOR Anesthesia Complication Comment: Post-operative progress note Anesthesia: Postop Eval II Evaluation Mental status: Awake Pain Level: 0 nausea: No Vomiting: No
== END 2024-10-16 18:16 | disposition home or self-care (01) ==
LOC: SDC 12:46 → AC 12:48
PROVIDERS: PCP Physician Assistant; Referring Provider Urology; Visit Provider Urology
PROC: (CPT 50590; principal; 2024-10-16 15:20)
DX: N20.0 Calculus of kidney (principal); I25.10 Atherosclerotic heart disease of native coronary artery without angina pectoris; I10 Essential (primary) hypertension; I25.2 Old myocardial infarction; E03.9 Hypothyroidism, unspecified; Z79.82 Long term (current) use of aspirin; Z79.890 Hormone replacement therapy; Z79.899 Other long term (current) drug therapy
CPT/HCPCS: 50590; 52332; 00873; 74018; 74176; C1769; C2617; J2405